=== PATIENT | male | born 1965 | race Caucasian/White ===

== ENCOUNTER 2024-01-27 13:34 | Emergency (ER) | payer MEDICAID, SELFPAY ==
[2024-01-27 13:49] VITALS: BP 154/90; PULSE 97; RESP 17; TEMP 36.5; O2SAT 99; BMI 24.6
--- NOTE | 2024-01-27 14:00 | XR_ITS ---
Examination: PA lateral chest 2 views TECHNIQUE: Upright PA lateral chest 2 views Exam date and time: January 27, 2024 at 1435 hours INDICATIONS: Intermittent chest pain one month FINDINGS: Normal heart size. Lungs are clear. Osseous structures are intact IMPRESSION: No active disease
--- NOTE | 2024-01-27 14:00 | XR_ITS ---
Examination: CT abdomen and pelvis without contrast. Coronal 3-D reconstructions. Sagittal 2-D reconstructions. Date and time of exam:January 27, 2024 1419 hours INDICATIONS: Generalized abdominal pain and constipation today, history kidney stones COMPARISON: May 25, 2022 CTDI: vol (mGy): 5.68 DLP: (mGycm): 301 Technique: Axial images of the abdomen have been obtained, 3 mm slice thickness Intravenous contrast material has not been administered. Low dose protocols were performed. One or more of the following dose reduction techniques were used; automated exposure control, adjustment of the mA and/or KV according to patient size, use of iterative reconstruction technique. Findings: No focal liver or splenic lesions No gallstones No pancreatic or adrenal mass 1 mm 3 mm 2 mm right renal calculi, no hydronephrosis or ureteral calculi Normal appendix No bowel obstruction No prostatomegaly No bladder mass or bladder calculi Mild to moderate diffuse lumbar disc narrowing IMPRESSION: Nonobstructing right renal calculi Normal appendix No bowel obstruction or diverticulitis
--- NOTE | 2024-01-27 14:00 | EKG_ITS ---
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
--- NOTE | 2024-01-27 14:01 | XR_ITS ---
Examination: CT brain head without contrast. 2-D sagittal coronal reconstructions Date and time of exam:January 27, 2024 1419 hours INDICATIONS: Generalized head pain today CTDI: vol (mGy):53.5 DLP: (mGycm):1058 Technique: Multiple CT axial sections of the brain have been obtained, 5 mm slice thickness. Contrast has not been administered. 2-D sagittal, coronal reconstructions have been obtained Low dose protocols were performed. One or more of the following dose reduction techniques were used; automated exposure control, adjustment of the mA and/or KV according to patient size, use of iterative reconstruction technique. Findings: No significant ventricular enlargement. Intra-axial or extra-axial hemorrhage density is not seen. No mass effect or midline shift Basal cisterns are not remarkable. Fourth ventricle is midline. Cranial vault intact. Impression: Negative for acute hemorrhage, mass effect or midline shift Advise clinical correlation follow-up accordingly
--- NOTE | 2024-01-27 14:01 | PD.EDRME ---
Rapid Medical Screening Exam RME Arrival date/time: 01/27/24 13:34 59-year-old male presents emergency department with multiple complaints patient reports headache, dizziness, constipation, abdominal pain Chief Complaint: Dizziness Time Seen by Provider: 01/27/24 13:56 Vital signs: Vital Signs Temperature 97.7 F 01/27/24 13:49 Pulse Rate 97 01/27/24 13:49 Respiratory Rate 17 01/27/24 13:49 Blood Pressure 154/90 H 01/27/24 13:49 Pulse Oximetry (%) 99 01/27/24 13:49 Oxygen Delivery Method Room Air 01/27/24 13:49
[2024-01-27 15:05] LABS: Basophils # (Auto) 0.1 Thou/mm3 (0.0-0.2); Basophils % (Auto) 1 % (0-2.5); Eosinophils # (Auto) 0.2 Thou/mm3 (0.0-0.5); Eosinophils % (Auto) 3 % (0-10); Hematocrit 36.8 % (41.0-53.0); Immature Granulocytes % (Auto) 0 % (0-0); Immature Granulocytes Auto 0.02 Thou/mm3 (0.00-0.00); Lymphocytes # (Auto) 2.2 Thou/mm3 (1.0-4.8); Lymphocytes % (Auto) 25 % (10-50); Mean Corpuscular HGB Conc 35.3 g/dl (31.0-37.0); Mean Corpuscular Hemoglobin 31.8 pg (25.0-35.0); Mean Corpuscular Volume 90 fL (80-100); Monocytes # (Auto) 0.8 Thou/mm3 (0.0-0.8); Monocytes % (Auto) 9 % (0-12); Neutrophils # (Auto) 5.3 Thou/mm3 (1.8-7.7); Neutrophils % (Auto) 62 % (37-80); Nucleated Red Blood Cell % 0 /100 WBC (0); Platelet Count 280 Thou/mm3 (140-440); RDW Standard Deviation 43.4 fL (35.1-43.9); Red Blood Count 4.09 Miln/mm3 (4.50-5.90); White Blood Count 8.5 Thou/mm3 (3.8-10.6)
[2024-01-27 15:24] LABS: Partial Thromboplastin Time 28.1 Seconds (22.0-36.0); Prothrombin Time 10.7 Seconds (9.0-12.2)
[2024-01-27 15:28] LABS: B-Type Natriuretic Peptide 155 pg/mL (0-100)
[2024-01-27 15:30] LABS: Alanine Aminotransferase 21 U/L (10-49); Albumin, Serum 4.3 gm/dL (3.5-5.0); Albumin/Globulin Ratio 1.5 (1.2-2.2); Alkaline Phosphatase 107 U/L (46-116); Anion Gap 4 (7-16); Aspartate Amino Transferase 21 U/L (0-34); BUN/Creatinine Ratio 12 Ratio (12-20); Bilirubin,Total 0.4 mg/dL (0.3-1.2); Blood Urea Nitrogen 17 mg/dL (9-23); Calcium 9.6 mg/dL (8.3-10.6); Calcium (Corrected) 9.6 mg/dL (8.5-10.1); Carbon Dioxide 27.5 mMol/L (20.0-31.0); Chloride 106 mMol/L (98-107); Creatinine (Component) 1.4 mg/dL (0.6-1.3); Estimated Creatinine Clearance 55.6 mL/min (>60); Globulin 2.9 gm/dL (2.3-3.5); Glucose 89 mg/dL (74-106); Lipase 29 U/L (12-53); Osmolality,Calculated 274 (275-295); Potassium 4.7 mMol/L (3.4-5.1); Sodium 137 mMol/L (136-145); Total Protein 7.2 gm/dL (5.7-8.2); Troponin I < 0.020 ng/mL (0.0-0.045); eGFR 58 See Note
[2024-01-27 15:49] LABS: Collection Type, Urine Clean Catch; Squamous Epithelial Cell,Urine 0 /hpf (0-5)
[2024-01-27 16:15] LABS: Amphetamine/Methamp Scrn,U Positive (Negative); Barbiturate Screen,Urine Negative (Negative); Benzodiazepines Screen,Urine Negative (Negative); Benzoylecgonine Screen, Ur Negative (Negative); Bilirubin,Urine Negative (Negative); Blood,Urine Negative (Negative); Clarity,Urine Clear (Clear/Hazy); Color,Urine Lt-Yellow (Lt Yel-Yel); Fentanyl Screen,Urine Negative (Negative); Glucose, Urine Negative (Negative); Ketones,Urine Negative (Negative); Leukocyte Esterase,Urine Negative (Negative); Nitrite,Urine Negative (Negative); Opiate Screen,Urine Negative (Negative); PH,Urine 6.5 (5.0-7.0); Protein,Urine Trace (Neg - Trace); RBC,Urine 2 /hpf (0-3); Specific Gravity,Urine 1.018 (1.001-1.035); THC Screen,Urine Positive (Negative); Urobilinogen,Urine Negative mg/dL (0.0-1.0); WBC,Urine 2 /hpf (0-5)
[2024-01-27 16:18] LABS: Sperm,Urine Present
[2024-01-27 17:07] VITALS: BP 143/90; PULSE 92; RESP 18; TEMP 36.7; O2SAT 99
--- NOTE | 2024-01-27 18:46 | PD.EDDIZZY ---
ED Dizzyness RME/HPI General Chief Complaint: Dizziness Stated Complaint: DIZZY, EARS RINGING, NEAR SYNCOPE Time Seen by Provider: 01/27/24 13:56 Source: patient Arrival date/time: 01/27/24 13:34 59-year-old male with past medical history of methamphetamine abuse presents emergency department complaining of headache, dizziness, constipation, and diffuse abdominal pain that is been ongoing for several weeks. Patient denies any fever, chills, nausea vomiting, chest pain, shortness of breath, or any other associated symptom. Mode of arrival: ambulatory Limitations: no limitations RME / HPI RME / HPI Narrative: 01/27/24 13:34 59-year-old male presents emergency department with multiple complaints patient reports headache, dizziness, constipation, abdominal pain Related Data Previous Rx's ?Medication ?Instructions ?Recorded hydrocodone 5 mg-acetaminophen 325 1 tab PO BID PRN pain #10 tabs 07/07/23 mg tablet meloxicam 7.5 mg tablet 7.5 mg PO QDAY #10 tabs 08/26/23 ondansetron 4 mg disintegrating 4 mg PO Q8H #10 tabs 08/26/23 tablet meclizine 50 mg tablet 50 mg PO BID PRN dizziness #30 tabs 01/08/24 peg 3350-electrolytes 236 240 ml PO Q10M #4,000 mL 01/08/24 gram-22.74 gram-6.74 gram-5.86 gram solution (GaviLyte-G) docusate sodium 100 mg capsule 100 mg PO BID 3 days #6 caps 01/27/24 polyethylene glycol 3350 17 4 g PO QDAY 3 days #12 grams 01/27/24 gram/dose oral powder (Miralax) Allergies Allergy/AdvReac Type Severity Reaction Status Date / Time No Known Allergies Allergy Verified 01/27/24 13:36 Review of Systems Review of Systems Systems Reviewed: All systems reviewed, normal except as documented Constitutional Constitutional: Reports system reviewed and no additional complaints, except as documented, Denies body ache(s), Denies chills, Denies fever(s) and Reports headache(s) Eyes Eyes: Reports system reviewed and no additional complaints, except as documented and Denies change in vision ENT Ears, Nose, Mouth, and Throat: Reports system reviewed and no additional complaints, except as documented, Denies disequilibrium, Denies dizziness, Reports headache(s), Denies sore throat and Reports vertigo Cardiovascular Cardiovascular: Reports system reviewed and no additional complaints, except as documented, Denies chest pain and Denies dyspnea Respiratory Respiratory: Reports system reviewed and no additional complaints, except as documented, Denies chest congestion, Denies cough and Denies dyspnea Gastrointestinal Gastrointestinal: Reports system reviewed and no additional complaints, except as documented, Reports abdominal pain, Reports constipation, Denies nausea and Denies vomiting Musculoskeletal Musculoskeletal: Reports system reviewed and no additional complaints, except as documented, Denies abnormal gait and Denies arthralgias Integumentary/Breasts Skin/Breast: Reports system reviewed and no additional complaints, except as documented, Denies erythema, Denies rash and Denies wounds Neurologic Neurologic: Reports system reviewed and no additional complaints, except as documented, Denies abnormal gait, Denies disequilibrium, Denies dizziness, Reports headache(s) and Reports vertigo Past Medical History Past Medical History NEUROLOGIC: Positive Migraine CARDIAC: Negative Cardiac Disorders or Congestive Heart Failure RESPIRATORY: Negative Chronic Obstructive Pulmonary Disease (COPD) GENITOURINARY: Negative Renal Disease ENDOCRINE: Negative Diabetes Mellitus Type 1 or Diabetes Mellitus Type 2 Social History SMOKING STATUS: Light (< 1 pack/day) SECOND HAND EXPOSURE: No ED Exam General Limitations: Present no limitations General appearance: Present alert and in no apparent distress Head Head exam: Present atraumatic Eye Eye exam: Present normal appearance, PERRL and EOMI ENT ENT exam: Present normal exam, normal oropharynx and mucous membranes moist Neck Neck exam: Present normal inspection, full ROM and trachea midline Chest Chest inspection: Present normal inspection and symmetric chest wall rise Respiratory Respiratory exam: Present normal lung sounds bilaterally Cardiovascular Cardiovascular exam: Present regular rate, normal rhythm and normal heart sounds Abdominal Exam Abdominal exam: Present soft and normal bowel sounds Extremities Exam Extremities exam: Present normal inspection and full ROM Back Exam Back exam: Present normal inspection and full ROM Neurological Exam Neurological exam: Present alert, oriented X3 and CN II-XII intact Psychiatric Psychiatric exam: Present normal affect and normal mood Skin Skin exam: Present warm, dry, intact and normal color Course Quality Measures none Orders Category Date Time Status EKG (ED ONLY) *Do not use* NOW Care 01/27/24 14:[address] abdomen pelvis wo con Stat Exams 01/27/24 14:[address] head/brain wo con Stat Exams 01/27/24 14:01 Completed EKG (ED Only) Stat Exams 01/27/24 14:00 Draft XR chest 2V Stat Exams 01/27/24 14:00 Completed B-Type Natriuretic Peptide Stat Lab 01/27/24 14:55 Completed CBC Stat Lab 01/27/24 14:55 Completed Comprehensive Metabolic Panel Stat Lab 01/27/24 14:55 Completed Drug Screen,Urine Stat Lab 01/27/24 15:40 Completed Lipase Stat Lab 01/27/24 14:55 Completed Magnesium Stat Lab 01/27/24 14:55 Completed Partial Thromboplastin Time Stat Lab 01/27/24 14:55 Completed Prothrombin Time with INR Stat Lab 01/27/24 14:55 Completed Troponin I Stat Lab 01/27/24 14:55 Completed Urinalysis Stat Lab 01/27/24 15:40 Completed Vital Signs Vital signs: Vital Signs Temperature 97.7 F 01/27/24 13:49 Pulse Rate 97 01/27/24 13:49 Respiratory Rate 17 01/27/24 13:49 Blood Pressure 154/90 H 01/27/24 13:49 Pulse Oximetry (%) 99 01/27/24 13:49 Oxygen Delivery Method Room Air 01/27/24 13:49 99% room air within normal limits Procedures -ED EKG Interpretation #1: Date of EK01/27/24 Time of EK:10 Rate: 89 Interpretation: Interpreted by me EKG Impression: Normal sinus rhythm, No acute ST-T changes, No ectopy and No ischemic changes Dizziness MDM Narrative MDM Narrative:: 59-year-old male with past medical history of methamphetamine abuse presents emergency department complaining of headache, dizziness, constipation, and diffuse abdominal pain that is been ongoing for several weeks. Patient denies any fever, chills, nausea vomiting, chest pain, shortness of breath, or any other associated symptom. Patient appears nontoxic and hemodynamically stable. CBC was unremarkable for any leukocytosis. CMP was unremarkable other than mildly elevated creatinine but better than previous labs. BNP was slightly elevated but patient has no adventitious lung sounds on auscultation speaking in full sentences and chest x-ray was negative for any acute process with no lower extremity edema. Toxicology was positive for methamphetamines. EKG was normal sinus rhythm with troponin within normal limits. CT of head and CT of abdomen pelvis was unremarkable. Patient's abdomen is soft and nontender. Patient does complain of constipation with last bowel movement being over 3 days ago. Patient discharged home on bowel regimen instructed to follow-up with primary care provider and return to the emergency department for any worsening symptoms or as needed. Patient data External records reviewed:: [facility] previous records Clinical information provided by:: patient Social determinants that could affect healthcare access:: substance use Patient has the following chronic illnesses:: See chart How is presenting disease/condition affected by chronic disease/condition?: exacerbated by Evaluation data The following diagnostics were reviewed and interpreted by me:: lab results, radiology exam(s) and EKG tracing(s) Lab and/or radiology exams considered but not ordered:: Ordered Interpretation Summary: Interpreted by me Medications / Prescriptions Medications or Prescriptions considered but not ordered:: N/A Medication administrations:: N/A Consultations Consultation(s) initiated? (list below): No Diagnosis Dizziness Differential Diagnosis: orthostatic hypotension, transient cerebral ischemia and other (CHF, ) Most likely diagnosis given after review of the tests above:: Methamphetamine use Constipation Admission Indicated Admission indicated?: not indicated Admission Request Was there a request for admission?: No Disposition Plan Disposition Plan: Discharge Discharge Attestation Discharge Attestation: The patient and all family members were given an opportunity to ask questions and understood the discharge instructions. Discharge instructions specifically effects, indications for sooner follow up or return to the emergency department, and the expected course of current diagnosis. Patient condition: Stable Discharge Plan Plan Patient Disposition: HOME (Self Care) Disposition Comment: Stable Prescriptions/Referrals Prescriptions/Med Rec: New docusate sodium 100 mg capsule 100 mg PO BID 3 Days Qty: 6 0RF polyethylene glycol 3350 [Miralax] 17 gram/dose powder 4 g PO QDAY 3 Days Qty: 12 0RF No Action peg 3350-electrolytes [GaviLyte-G] 236-22.74-6.74 -5.86 gram recon soln 240 ml PO Q10M Qty: 4000 0RF Rx Instructions: until fecal effluent is clear meclizine 50 mg tablet 50 mg PO BID PRN (Reason: dizziness) Qty: 30 0RF hydrocodone-acetaminophen 5-325 mg tablet 1 tab PO BID MDD 10 PRN (Reason: pain) Qty: 10 0RF ondansetron 4 mg tablet,disintegrating 4 mg PO Q8H Qty: 10 0RF meloxicam 7.5 mg tablet 7.5 mg PO QDAY Qty: 10 0RF Referrals: Sid [facility] [address] [employer] [employer] [Primary Care Provider] - In 1 week Problem List Clinical Impression: Constipation, Methamphetamine use Patient/Caregiver Discharge Instructions Discharge Activity: activity as tolerated Education Materials: Treating Constipation, Eating a High-Fiber Diet, Addiction: Getting Help, Addiction: Your Treatment Options, ED Drug Abuse Additional Instructions: Take medication as prescribed. Please stop using methamphetamines. Resources packet provided. Follow-up with primary care provider in 24 to 48 hours. Return to emergency department for any worsening symptoms or as needed. Print Language: Yi Stand Alone Forms: Josie Award Info., Patient Portal Info Letter Attestation MD Attestation The patient was seen by the midlevel practitioner. I, the co-signing physician, was present during the entire ER visit. While I did not physically examine the patient, I was available for consultation as needed.
== END 2024-01-27 18:57 | disposition home or self-care (01) ==
PROVIDERS: Nurse Practitioner Primary Care; Emergency Provider Emergency Medicine; PCP Nurse Practitioner Family
DX: K59.00 Constipation, unspecified (principal); F15.10 Other stimulant abuse, uncomplicated; R51.9 Headache, unspecified; R07.9 Chest pain, unspecified; R94.31 Abnormal electrocardiogram [ECG] [EKG]
CPT/HCPCS: 36415; 70450; 71046; 74176; 80053; 80307; 81001; 83690; 83735; 83880; 84484; 85025; 85610; 85730; 93005; 99284

== ENCOUNTER → 2024-02-06 | Outpatient (BNVA) | payer MEDICAID, SELFPAY | END | disposition home or self-care (01) | PROVIDERS: PCP Nurse Practitioner Family; Referring Provider Nurse Practitioner Family; Visit Provider Nurse Practitioner Family | DX: R53.83 Other fatigue (principal); F17.200 Nicotine dependence, unspecified, uncomplicated; M25.59 Pain in other specified joint; Z87.01 Personal history of pneumonia (recurrent) | CPT/HCPCS: 99215 ==

== ENCOUNTER → 2024-02-20 | Outpatient (BNVA) | payer MEDICAID, SELFPAY | END | disposition home or self-care (01) | PROVIDERS: PCP Nurse Practitioner Primary Care; Referring Provider Nurse Practitioner Primary Care; Visit Provider Nurse Practitioner Primary Care | DX: R91.1 Solitary pulmonary nodule (principal); F17.200 Nicotine dependence, unspecified, uncomplicated; I51.7 Cardiomegaly; F15.10 Other stimulant abuse, uncomplicated; Z13.220 Encounter for screening for lipoid disorders; Z13.1 Encounter for screening for diabetes mellitus; Z13.89 Encounter for screening for other disorder; Z87.01 Personal history of pneumonia (recurrent) | CPT/HCPCS: 85018; 93005; 99214 ==

== ENCOUNTER → 2024-02-26 | Outpatient (CLI) | payer MEDICAID, SELFPAY ==
--- NOTE | 2024-02-26 13:51 | XR_ITS ---
Examination: PA lateral chest 2 views TECHNIQUE: Upright PA lateral chest 2 views Exam date and time: 2023 1402 hours Comparison January 27, 2024 INDICATIONS: Shortness of breath beginning 2 months ago. FINDINGS: Normal heart size Moderate hyperexpansion No pneumonia or pulmonary edema The osseous structures are intact IMPRESSION: COPD with moderate hyperexpansion
== END | disposition home or self-care (01) ==
PROVIDERS: PCP Nurse Practitioner Family; Referring Provider Nurse Practitioner Family; Visit Provider Nurse Practitioner Family
DX: J44.9 Chronic obstructive pulmonary disease, unspecified (principal)
CPT/HCPCS: 71046

== ENCOUNTER → 2024-02-27 | Outpatient (BNVA) | payer MEDICAID, SELFPAY | END | disposition home or self-care (01) | PROVIDERS: PCP Nurse Practitioner Primary Care; Referring Provider Nurse Practitioner Primary Care; Visit Provider Nurse Practitioner Primary Care | DX: J44.9 Chronic obstructive pulmonary disease, unspecified (principal); Z71.2 Person consulting for explanation of examination or test findings; Z00.01 Encounter for general adult medical examination with abnormal findings; R73.03 Prediabetes; B17.10 Acute hepatitis C without hepatic coma; F17.200 Nicotine dependence, unspecified, uncomplicated | CPT/HCPCS: 93005; 99215 ==

== ENCOUNTER → 2024-03-03 | Outpatient (BNVA) | payer MEDICAID, SELFPAY | END | disposition home or self-care (01) | PROVIDERS: PCP Nurse Practitioner Primary Care; Referring Provider Nurse Practitioner Primary Care; Visit Provider Nurse Practitioner Primary Care | DX: B17.10 Acute hepatitis C without hepatic coma (principal) | CPT/HCPCS: 99213 ==

== ENCOUNTER 2024-06-14 01:34 | Emergency (ER) | payer MEDICAID, SELFPAY ==
[2024-06-14] VITALS (9 sets, daily range): BP systolic 130–154; BP diastolic 89–104; PULSE 88–106; RESP 16–22; TEMP 36.4–36.8; O2SAT 96–100; BMI 55.3
--- NOTE | 2024-06-14 01:44 | EKG_ITS ---
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
--- NOTE | 2024-06-14 01:54 | XR_ITS ---
Examination: PA lateral chest 2 views TECHNIQUE: Upright PA lateral chest 2 views Exam date and time: June 14, 2024 0227 hours INDICATIONS: Shortness of breath today FINDINGS: Normal heart size Moderate hyperexpansion No pneumonia or pulmonary edema IMPRESSION: Moderate hyperexpansion No pneumonia or pulmonary edema
--- NOTE | 2024-06-14 01:55 | PD.EDRME ---
Rapid Medical Screening Exam RME Arrival date/time: 06/14/24 01:34 59 year old male present to ED for c/o of shortness of breath, hx of copd I have greeted and performed a focused initial assessment of this patient. A comprehensive ED assessment and evaluation of the patient, analysis of all test results, and completion of the medical decision making process will be conducted by additional ED providers. Chief Complaint: Shortness of Breath/Dyspnea Vital signs: Vital Signs Temperature 97.5 F 06/14/24 01:53 Pulse Rate 106 H 06/14/24 01:53 Respiratory Rate 19 06/14/24 01:53 Blood Pressure 130/89 H 06/14/24 01:53 Pulse Oximetry (%) 97 06/14/24 01:53 Oxygen Delivery Method Room Air 06/14/24 01:53
[2024-06-14] MEDS: ALBUTEROL/IPRATROPIUM (Duoneb) RT SOL 3 ML NEBU INH ×3 (02:05→08:24)
[2024-06-14 02:20] LABS: Basophils # (Auto) 0.1 Thou/mm3 (0.0-0.2); Basophils % (Auto) 1 % (0-2.5); Eosinophils # (Auto) 0.2 Thou/mm3 (0.0-0.5); Eosinophils % (Auto) 3 % (0-10); Hematocrit 40.6 % (41.0-53.0); Hemoglobin 14.1 g/dL (13.5-16.0); Immature Granulocytes % (Auto) 0 % (0-0); Immature Granulocytes Auto 0.01 Thou/mm3 (0.00-0.00); Lymphocytes % (Auto) 35 % (10-50); Mean Corpuscular HGB Conc 34.7 g/dl (31.0-37.0); Mean Corpuscular Hemoglobin 32.6 pg (25.0-35.0); Mean Corpuscular Volume 94 fL (80-100); Monocytes # (Auto) 0.9 Thou/mm3 (0.0-0.8); Monocytes % (Auto) 10 % (0-12); Neutrophils # (Auto) 4.3 Thou/mm3 (1.8-7.7); Neutrophils % (Auto) 51 % (37-80); Nucleated Red Blood Cell % 0 /100 WBC (0); Platelet Count 191 Thou/mm3 (140-440); RDW Standard Deviation 47.7 fL (35.1-43.9); Red Blood Count 4.32 Miln/mm3 (4.50-5.90); White Blood Count 8.6 Thou/mm3 (3.8-10.6)
[2024-06-14] MEDS: predniSONE 20 MG TABLET 60 MG PO (02:22)
[2024-06-14 02:40] LABS: B-Type Natriuretic Peptide 364 pg/mL (0-100)
[2024-06-14 02:51] LABS: Alanine Aminotransferase 27 U/L (10-49); Albumin/Globulin Ratio 1.4 (1.2-2.2); Alkaline Phosphatase 93 U/L (46-116); Anion Gap 7 (7-16); Aspartate Amino Transferase 29 U/L (0-34); BUN/Creatinine Ratio 16 Ratio (12-20); Bilirubin,Total 0.5 mg/dL (0.3-1.2); Blood Urea Nitrogen 26 mg/dL (9-23); Calcium 9.2 mg/dL (8.3-10.6); Calcium (Corrected) 9.2 mg/dL (8.5-10.1); Carbon Dioxide 23.7 mMol/L (20.0-31.0); Chloride 110 mMol/L (98-107); Creatinine (Component) 1.6 mg/dL (0.6-1.3); Estimated Creatinine Clearance 83.4 mL/min (>60); Globulin 2.9 gm/dL (2.3-3.5); Lipase 37 U/L (12-53); Osmolality,Calculated 282 (275-295); Potassium 4.1 mMol/L (3.4-5.1); Sodium 141 mMol/L (136-145); Total Protein 6.9 gm/dL (5.7-8.2); Troponin I < 0.020 ng/mL (0.0-0.045); eGFR 50 See Note
[2024-06-14 02:52] LABS: Glucose 49 mg/dL (74-106)
--- NOTE | 2024-06-14 02:54 | PC.NURSE ---
RECEIVED CALL FROM LAB THAT PATIENTS BLOOD SUGAR WAS 49, PT ALERT AND ORIENTED GIVEN JUICE AND FOOD
--- NOTE | 2024-06-14 07:04 | PC.NURSE ---
Report received from Torey DENT, patient lying in [place] quietly, no distress noted at this time, resp. even and non labored, patient received neb, tx with improvement of his sypmtoms, patient states he has been sob for past few months with a non productive cough, skin is warm dry and pink, 02 sats 97% on RA. Patient denies pain, call light within reach, patient has no other needs at this time.
--- NOTE | 2024-06-14 08:14 | EDNOTE_ITS ---
ED SOB =RME/HPI General Chief Complaint: Shortness of Breath/Dyspnea Stated Complaint: S0B Arrival date/time: 06/14/24 01:34 RME / HPI RME / HPI Narrative: 06/14/24 01:34 59 year old male present to ED for c/o of shortness of breath, hx of copd I have greeted and performed a focused initial assessment of this patient. A comprehensive ED assessment and evaluation of the patient, analysis of all test results, and completion of the medical decision making process will be conducted by additional ED providers. DR. BREEN MAIN ED EVALUATION: 59 year old male with past medical history significant for COPD, cigarette smoker, presents to the Emergency Department with complaint of shortness of breath for a couple of months but worse this morning. Related Data Previous Rx's ?Medication ?Instructions ?Recorded albuterol sulfate 90 mcg/actuation 2 inh inhalation Q6 H PRN shortness 02/27/24 aerosol inhaler of breath or wheezing #8.5 g deejay fluticasone propionate 250 1 inh inhalation BID #60 ea 02/27/24 mcg/actuation blister powder for inhalation tiotropium bromide 2.5 2 puff inhalation QDAY #4 gr ams 02/27/24 mcg/actuation mist for inhalation (Spiriva Respimat) Allergies Allergy/AdvReac Type Severity Reaction Status Date / Time No Known Allergies Allergy Verified 06/14/24 01:40 Review of Systems Review of Systems Systems Reviewed: All systems reviewed, normal except as documented Narrative Review of Systems: GEN: No fever, no chills, no weight loss EYES: No discharge, no visual changes, no pain HEENT: No ear pain, no congestion, no sore throat PULM: + shortness of breath, no cough, no congestion CV: No chest pain, no dyspnea on exertion, no palpitations GI: No nausea, no vomiting, no diarrhea, no pain, no constipation : No frequency, no urgency and no dysuria MUSC/SKEL: No joint pain, no back pain SKIN: No rash PSYCH: No hallucinations, no depression HEME/LYMPH: No easy bleeding or bruising tendencies NEURO: No weakness, no headache Past Medical History Past Medical History NEUROLOGIC: Positive Migraine RESPIRATORY: Positive Chronic Obstructive Pulmonary Disease (COPD) Social History SMOKING STATUS: Current every day smoker SECOND HAND EXPOSURE: No SUBSTANCE USE: does not use ALCOHOL: Never ED Exam Narrative Physical exam: GENERAL APPEARANCE: alert and oriented x 4, well-developed, well-nourished, no acute distress VITALS: All vitals were reviewed and the pulse ox is 96% on room air, which is normal according to my interpretation. HEENT: Normocephalic, atraumatic; pupils equal, round, reactive to light; EOMI; mucous membranes pink, moist; oropharynx clear NECK: Supple LUNGS: CTABL; no wheezes, no rales, no rhonchi HEART: Regular rate, regular rhythm; normal S1, S2; no murmurs ABDOMEN: non distended; normal BS; soft, no tenderness, no guarding, no rebound; no masses, no organomegaly, no hernia BACK: no CVA tenderness EXTREMITIES: atraumatic; no edema NEUROLOGIC: awake; alert and oriented x4; cranial nerves II-XII grossly intact; no focal sensory or motor deficits PSYCHIATRIC: appropriate mood and affect SKIN: warm, dry, normal color; no rashes Course Quality Measures none Orders Category Date Time Status EKG (ED ONLY) *Do not use* NOW Care 06/14/24 01:44 Completed Fingerstick [Bedside Blood Glucose] NOW Care 06/14/24 03:45 Completed EKG (ED Only) Stat Exams 06/14/24 01:44 Ordered XR chest 2V Stat Exams 06/14/24 01:54 Completed BNP [B-Type Natriuretic Peptide] Stat Lab 06/14/24 02:06 Completed CBC Stat Lab 06/14/24 02:06 Completed CMP [Comprehensive Metabolic Panel] Stat Lab 06/14/24 02:06 Completed Lipase Stat Lab 06/14/24 02:06 Completed Troponin I Stat Lab 06/14/24 02:06 Completed Albuterol/Ipratr Rt Katarina [Duoneb Rt Katarina] Med 06/14/24 01:54 Discontinued 3 ml INH X1 ONE Albuterol/Ipratr Rt Katarina [Duoneb Rt Katarina] Med 06/14/24 05:50 Discontinued 3 ml INH X1 ONE Albuterol/Ipratr Rt Katarina [Duoneb Rt Katarina] Med 06/14/24 08:15 Discontinued 3 ml INH X1 ONE predniSONE Med 06/14/24 01:54 Discontinued 60 mg PO X1 ONE Vital Signs Vital signs: Vital Signs Temperature 97.5 F 06/14/24 01:53 Pulse Rate 106 H 06/14/24 01:53 Respiratory Rate 19 06/14/24 01:53 Blood Pressure 130/89 H 06/14/24 01:53 Pulse Oximetry (%) 97 06/14/24 01:53 Oxygen Delivery Method Room Air 06/14/24 01:53 Shortness of Breath / Dyspnea MDM Narrative MDM Narrative:: I, Chanelle Portillo, am scribing for and in the presence of Dr. Breen. Patient data External records reviewed:: [facility] previous records (Reviewed last ED visit dated 01/08/24, discharged with the following: Constipation) Clinical information provided by:: patient Social determinants that could affect healthcare access:: other (specify) (smoking) Patient has the following chronic illnesses:: COPD, cigarette smoker How is presenting disease/condition affected by chronic disease/condition?: ca used by Evaluation data The following diagnostics were reviewed and interpreted by me:: lab results and radiology exam(s) Lab and/or radiology exams considered but not ordered:: none Interpretation Summary: Procedure(s): XR chest 2V Accession Number(s): [id number] cc: Stevie Jean Baptiste MD; William Rogers PA-C; Pancho Parr PA-C~ Examination: PA lateral chest 2 views TECHNIQUE: Upright PA lateral chest 2 views Exam date and time: June 14, 2024 0227 hours INDICATIONS: Shortness of breath today FINDINGS: Normal heart size Moderate hyperexpansion No pneumonia or pulmonary edema IMPRESSION: Moderate hyperexpansion No pneumonia or pulmonary edema Dictated By: Stevie Jean Baptiste MD Medications / Prescriptions Medications or Prescriptions considered but not ordered:: none Medication administrations:: Medication Administration History Discontinued Medications Albuterol/Ipratropium (Albuterol/Ipratropium (Duoneb) Rt Katarina 3 Ml Nebu) 3 ml INH X1 ONE Stop: 06/14/24 01:55 Last Admin: 06/14/24 02:05 Dose: 3 ml Documented By: SESAR Comments: Scanner not working, verified with armband and PT /name Albuterol/Ipratropium (Albuterol/Ipratropium (Duoneb) Rt Katarina 3 Ml Nebu) 3 ml INH X1 ONE Stop: 06/14/24 05:51 Last Admin: 06/14/24 06:34 Dose: 3 ml Documented By: ANISHA Albuterol/Ipratropium (Albuterol/Ipratropium (Duoneb) Rt Katarina 3 Ml Nebu) 3 ml INH X1 ONE Stop: 06/14/24 08:16 Last Admin: 06/14/24 08:24 Dose: 3 ml Documented By: ANISHA Prednisone (Prednisone 20 Mg Tablet) 60 mg PO X1 ONE Stop: 06/14/24 01:55 Last Admin: 06/14/24 02:22 Dose: 60 mg Documented By: BALBIR see above Consultations Consultation(s) initiated? (list below): No Diagnosis Shortness of Breath Differential Diagnosis: acute exacerbation of chronic obstructive airways disease, community acquired pneumonia and asthma with exacerbation Most likely diagnosis given after review of the tests above:: COPD Cigarette smoker Dyspnea Admission Indicated Admission indicated?: not indicated Admission Request Was there a request for admission?: No Disposition Plan Disposition Plan: Discharge Discharge Attestation Discharge Attestation: The patient and all family members were given an opportunity to ask questions and understood the discharge instructions. Discharge instructions specifically effects, indications for sooner follow up or return to the emergency department, and the expected course of current diagnosis. Patient condition: Stable Discharge Plan Plan Patient Disposition: HOME (Self Care) Prescriptions/Referrals Prescriptions/Med Rec: No Action Spiriva Respimat 2.5 mcg/actuation mist 2 puff inhalation QDAY Qty: 4 1RF albuterol sulfate 90 mcg/actuation HFA aerosol inhaler 2 inh inhalation Q6H PRN (Reason: shortness of breath or wheezing) Qty: 8.5 0RF fluticasone propionate 250 mcg/actuation blister with device 1 inh inhalation BID Qty: 60 0RF Referrals: Pancho Parr PA-C [Primary Care Provider] - In 1 week Problem List Clinical Impression: COPD (chronic obstructive pulmonary disease), Cigarette smoker, Dyspnea Patient/Caregiver Discharge Instructions Education Materials: Chronic Lung Disease Quit Smoking, ED Shortness of Breath (Dyspnea) Print Language: Slovak Stand Alone Forms: Josie Award Info., Patient Portal Info Letter
== END 2024-06-14 09:14 | disposition home or self-care (01) ==
PROVIDERS: Physician Assistant; Emergency Provider Emergency Medicine; PCP Physician Assistant Medical
DX: J44.9 Chronic obstructive pulmonary disease, unspecified (principal); F17.210 Nicotine dependence, cigarettes, uncomplicated; R94.31 Abnormal electrocardiogram [ECG] [EKG]
CPT/HCPCS: 36415; 71046; 80053; 83690; 83880; 84484; 85025; 93005; 94640; 99284; A9270; J7512

== ENCOUNTER 2024-07-30 03:03 | Inpatient (IN) | payer MEDICAID, SELFPAY ==
[2024-07-30] VITALS (141 sets, daily range): BP systolic 64–163; BP diastolic 46–111; PULSE 56–131; RESP 0–88; TEMP 34.5–36.9; O2SAT 48–100; BMI 24.4
--- NOTE | 2024-07-30 03:57 | EKG_ITS ---
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: : 1965 Requested By: Julio Kelsey Order Number: [id number] Reading MD: Julio Kelsey Measurements Intervals Howard Rate: 65 P: 75 MN: 166 QRS: 93 QRSD: 98 T: 5 QT: 470 QTc: 490 Interpretive Statements SINUS RHYTHM BORDERLINE RIGHT AXIS DEVIATION [QRS AXIS > 90] INCOMPLETE RIGHT BUNDLE BRANCH BLOCK [90+ ms QRS DURATION, TERMINAL R IN V1/V2, 40+ ms S IN I/aVL/V4/V5/V6] ST DEVIATION AND MODERATE T-WAVE ABNORMALITY, CONSIDER ANTEROLATERAL ISCHEMIA [-0.1+ mV T-WAVE IN V3-V6] Compared to ECG 06/14/2024 01:49:26 Incomplete right bundle-branch block now present T-wave abnormality still present Possible ischemia still present /store/S0/[id number]/ecg/[id number].pdf
--- NOTE | 2024-07-30 03:57 | XR_ITS ---
Examination: PA chest single view TECHNIQUE: Upright PA chest single view Date and time: July 30, 2024 at 0405 hours INDICATION: Chest pain and shortness of breath today. FINDINGS: Mild prominence left ventricle No pneumonia or pulmonary edema. Osseous structures are intact. IMPRESSION: No active disease
--- NOTE | 2024-07-30 04:11 | PD.EDRME ---
Rapid Medical Screening Exam RME Arrival date/time: 07/30/24 03:03 59M with history of drug use and COPD presents to ED with SOB, bilateral leg pain/swelling, and dizziness. Chief Complaint: Dizziness Time Seen by Provider: 07/30/24 03:58 Vital signs: Vital Signs Temperature 98.5 F 07/30/24 03:12 Pulse Rate 87 07/30/24 03:12 Respiratory Rate 18 07/30/24 03:12 Blood Pressure 148/104 H 07/30/24 03:12 Pulse Oximetry (%) 100 07/30/24 03:12 Oxygen Delivery Method Room Air 07/30/24 03:12
[2024-07-30] MEDS: METOPROLOL TARTRATE 25 MG TABLET 50 MG PO ×2 (04:32→04:33)
[2024-07-30] MEDS: cloNIDine HCL 0.1 MG TABLET 0.2 MG PO (04:33)
[2024-07-30 05:33] LABS: Basophils % (Auto) 1 % (0-2.5); Eosinophils # (Auto) 0.2 Thou/mm3 (0.0-0.5); Eosinophils % (Auto) 2 % (0-10); Hemoglobin 13.9 g/dL (13.5-16.0); Immature Granulocytes % (Auto) 0 % (0-0); Immature Granulocytes Auto 0.02 Thou/mm3 (0.00-0.00); Lymphocytes # (Auto) 2.2 Thou/mm3 (1.0-4.8); Lymphocytes % (Auto) 27 % (10-50); Mean Corpuscular HGB Conc 35.6 g/dl (31.0-37.0); Mean Corpuscular Hemoglobin 32.9 pg (25.0-35.0); Mean Corpuscular Volume 92 fL (80-100); Monocytes # (Auto) 0.8 Thou/mm3 (0.0-0.8); Monocytes % (Auto) 9 % (0-12); Neutrophils % (Auto) 61 % (37-80); Nucleated Red Blood Cell % 0 /100 WBC (0); Platelet Count 189 Thou/mm3 (140-440); RDW Standard Deviation 47.6 fL (35.1-43.9); Red Blood Count 4.23 Miln/mm3 (4.50-5.90); White Blood Count 8.3 Thou/mm3 (3.8-10.6)
--- NOTE | 2024-07-30 05:41 | XR_ITS ---
Examination: CT brain head without contrast. 2-D sagittal coronal reconstructions Date and time of exam:July 30, 2024 1343 hours INDICATIONS: Headaches dizziness today CTDI: vol (mGy):50.7 DLP: (mGycm):1111 Technique: Multiple CT axial sections of the brain have been obtained, 5 mm slice thickness. Contrast has not been administered. 2-D sagittal, coronal reconstructions have been obtained Low dose protocols were performed. One or more of the following dose reduction techniques were used; automated exposure control, adjustment of the mA and/or KV according to patient size, use of iterative reconstruction technique. Findings: No significant ventricular enlargement. Intra-axial or extra-axial hemorrhage density is not seen. No mass effect or midline shift Basal cisterns are not remarkable. Fourth ventricle is midline. Cranial vault intact. Impression: Negative for acute hemorrhage, mass effect or midline shift Advise clinical correlation follow-up accordingly
--- NOTE | 2024-07-30 05:42 | XR_ITS ---
Examination: CTA chest with intravenous contrast 2-D reconstructions 3-D reconstructions, vascular Date and time of exam: July 30, 2024 1351 hours INDICATIONS: Shortness of breath chest pain today CTDI: vol (mGy) 17.4 DLP: (mGycm) 609 Technique: Multiple axial sections of the thorax have been obtained. 3 mm slice thickness, from below the hemidiaphragms to above the apices of the lungs. Mediastinal and lung density settings have been obtained. 2-D sagittal and coronal reconstructions. 3-D angiographic renderings, 3-D volume renderings, 3D post processing, vascular maximum intensity projections obtained. Contrast administered is 60 cc Isovue-300. Intravenous Low dose protocols were performed. One or more of the following dose reduction techniques were used; automated exposure control, adjustment of the mA and/or KV according to patient size, use of iterative reconstruction technique. Findings: No thoracic aortic aneurysmal dilatation No pulmonary artery filling defects No paratracheal tracheobronchial or bronchopulmonary adenopathy. 3 mm pulmonary nodule right upper lobe image 153 Minimal right pleural disease No pulmonary edema or pneumonia IMPRESSION:: Negative for pulmonary artery emboli 3 mm pulmonary nodule right upper lobe, with this study as baseline recommend 6 month follow-up CT chest without contrast No pneumonia or pulmonary edema Minimal right pleural disease
--- NOTE | 2024-07-30 05:42 | XR_ITS ---
Examination: CT abdomen with intravenous contrast CT pelvis with intravenous contrast 2-D coronal reconstructions 2-D sagittal reconstructions Date and time of exam:July 30, 2024 1351 hours Comparison January 27, 2024 INDICATIONS: Onset generalized abdominal pain today. CTDI: vol (mGy) 15.9 DLP: (mGycm) 931 Technique: Multiple axial sections of the abdomen and pelvis have been obtained. 64 slice high-resolution scanner used. 3 mm axial sections have been obtained, post intravenous injection 60 cc Isovue-300 2-D sagittal, coronal reconstructions obtained. Low dose protocols were performed. One or more of the following dose reduction techniques were used; automated exposure control, adjustment of the mA and/or KV according to patient size, use of iterative reconstruction technique. Findings: Minimal right pleural disease Minimal fluid subcapsular to the liver Liver is irregular in contour Mild ascites Contracted gallbladder Spleen is not enlarged No pancreatic or adrenal mass No hydronephrosis Aorta normal size No bowel obstruction Normal appendix No diverticulitis Urinary bladder intact with mild wall thickening Fluid containing inguinal hernias Moderate osteopenia IMPRESSION: Primary hepatocellular disease versus cirrhosis Mild ascites No gallstones noted Normal appendix No bowel obstruction
[2024-07-30 05:53] LABS: Alanine Aminotransferase 28 U/L (10-49); Albumin, Serum 4.1 gm/dL (3.5-5.0); Albumin/Globulin Ratio 1.4 (1.2-2.2); Alkaline Phosphatase 100 U/L (46-116); Anion Gap 8 (7-16); Aspartate Amino Transferase 30 U/L (0-34); BUN/Creatinine Ratio 15 Ratio (12-20); Bilirubin,Total 0.6 mg/dL (0.3-1.2); Blood Urea Nitrogen 23 mg/dL (9-23); Calcium 9.2 mg/dL (8.3-10.6); Calcium (Corrected) 9.2 mg/dL (8.5-10.1); Carbon Dioxide 25.1 mMol/L (20.0-31.0); Chloride 109 mMol/L (98-107); Creatinine (Component) 1.5 mg/dL (0.6-1.3); Estimated Creatinine Clearance 57.2 mL/min (>60); Globulin 2.9 gm/dL (2.3-3.5); Glucose 99 mg/dL (74-106); Osmolality,Calculated 286 (275-295); Potassium 5.1 mMol/L (3.4-5.1); Sodium 142 mMol/L (136-145); Troponin I < 0.020 ng/mL (0.0-0.045); eGFR 54 See Note
[2024-07-30 05:54] LABS: Collection Type, Urine Clean Catch; Squamous Epithelial Cell,Urine 0 /hpf (0-5)
[2024-07-30 05:56] LABS: Partial Thromboplastin Time 28.5 Seconds (22.0-36.0); Prothrombin Time 11.1 Seconds (9.0-12.2)
[2024-07-30 06:04] LABS: B-Type Natriuretic Peptide 658 pg/mL (0-100)
[2024-07-30] MEDS: KETOROLAC INJ 30 MG/ML VIAL IVP (06:11)
[2024-07-30] MEDS: ONDANSETRON INJ 2 MG/ML INJ 2 ML 4 MG IV ×3 (06:11→12:16)
[2024-07-30] MEDS: MORPHINE SULF INJ 10 MG/ML VIAL 4 MG IVP (06:12)
[2024-07-30] MEDS: SODIUM CHLORIDE 0.9% 1000 ML 1,000 ML 999 ML IV ×2 (06:13→06:57)
--- NOTE | 2024-07-30 06:32 | EDNOTE_ITS ---
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 repeated which was similar to previous EKG. Patient denied any chest pain. Current blood pressure is around 88/68. Blood sugar was 121. Blood alcohol came negative. ED physician ordered CTA angio, CT head, CT abdomen pelvis with contrast currently pending. Will follow-up with imaging results. 7:31 Patient was found hypotensive 77/64 MAP 55 and was running second bag of bolus of fluids. stat Trop I, Lactic acid and ABGs were ordered. 8:00 patient started becoming hypoxic around 60% on 15 L oxy mask and was placed on high flow nasal cannula. Stat ABGs revealed respiratory acidosis with pH 7.26, pCO2 36, pO2 171. Lactic acid came back 2.9. Repeat troponin I was negative less than 0.020. Blood sugars were 116. Blood pressure revealed blood pressure of 85/66. Patient started having widespread mottling around his thighs and knees. Patient was diaphoretic and was placed on Heavenly hugger due to hypothermia temperature of 94.1. Heart rate was 60 bpm. 8: 20 patient was awake and alert however patient's pulses became extremely weak and thready. Patient was given glucagon 1 mg IV x 1 diversified to be the ariana. Upon recycling of blood pressure, patient started improving in the vitals including blood pressure with MAP of 72. Limited bedside ultrasound was performed to see his cardiac functions which showed severe RV hypertrophy and IVC was dilated. New CBC, CMP were ordered. Currently continuing on high flow nasal cannula and Levophed was added but was held as blood pressure improved. 8: 55 currently waiting on the official echocardiogram. Per quality assurance qa lab technician, patient has severe pulmonary hypertension with preserved ejection fraction. Patient is not sustaining stable vitals as well as oxygen saturations dropped to 88% as patient removes his high flow nasal cannula because of smell from the plastic of the cannula. His blood pressure was 77/58, heart rate 60s, respiratory 33 and temperature 94.1. Patient was explained that he needs to keep his high flow nasal cannula for better oxygenation. Vitals were closely monitored. 9: 20 hospitalist team was contacted and they came to evaluate the patient downstairs. Examination was significant for abdominal distention with lower pelvic and right upper quadrant tenderness and they wanted to evaluate the patient with CT abdomen before the admit the patient. Additionally, patient was given dose of Narcan 0.22 IV x 1 with Zofran 4 mg to help with oxygen saturation. D-dimers were less than 250. Lopez catheter was inserted along with strict NAMAN's to monitor patient's urine output. 10:00 chemistry panel showed hyperkalemia potassium 5.8. Corrected calcium came 8.1. Magnesium 1.9. Patient was given breathing treatment, calcium gluconate and 1 g magnesium x 1. 13:00 patient's daughter came in the bedside and she was explained regarding patient's critical condition and admission to the ICU. Daughter stated the patient is full code and she would appreciate to be updated regarding patient's clinical status. Cardiology, Dr Valladares has been consulted for following the case. 13:41 CTA was negative for PE. 3 mm pulmonary nodule was seen on right upper lobe. No pneumonia or pulmonary edema. Minimal right pleural disease. CT abdomen pelvis showed mild ascites. Irregular liver in contour. Head CT showed no acute changes. ICU team came by and took over the patient for admission to ICU and was started on dobutamine drip due to cardiogenic shock related to severe pulmonary hypertension. Heparin drip was Dced as PE was not found. Discussed case with ICU team regarding admission. Discussed patient's ED course, exam findings, labs and radiology results. ICU team agreed to accept the patient for admission. EKG Interpretation EKG #1: EKG Interpretation: EKG showed sinus rhythm with QTc 490 incomplete RBBB and T wave inversions seen in lead V1, V2, V3, V4, V5. EKG #2: EKG Interpretation: EKG was repeated which was similar to previous EKG. Medication Administration(s) Medication Administration History Famotidine (Famotidine Inj 10 Mg/Ml Vial 2 Ml) 20 mg IVP BID [facility] Stop: 08/29/24 20:59 Furosemide (Furosemide Inj 10 Mg/Ml Vial 2 Ml) 20 mg IV TID [facility] Stop: 08/29/24 14:44 Heparin Sodium (Porcine) (Heparin Sod Inj 5000 Unit/Ml Vial) 5,000 unit SC TID [facility] Stop: 08/13/24 21:59 Dobutamine HCl/Dextrose (Dobutrex/D5w Ivpb) 500 mg in 250 mls @ 5.953 mls/hr IV .Q24H ONE; Protocol Stop: 07/31/24 14:31 Last Admin: 07/30/24 15:15 Dose: 2.5 mcg/kg/min, 5.953 mls/hr Documented By: GM Midazolam HCl (Versed Pf Inj In Ns Premix) 100 mg in 100 mls @ 1 mls/hr IV .Q24H PRN; Protocol PRN Reason: PER PROTOCOL Stop: 08/04/24 16:13 Phenylephrine HCl 40 mg/ (Sodium Chloride) 100 mls @ 1.191 mls/hr IV .Q24H PRN; Protocol PRN Reason: Per Cardiogenic Protocol Stop: 08/29/24 17:42 Norepinephrine/Dextrose (Levophed In D5w 8mg/250ml) 8 mg in 250 mls @ 7.442 mls/hr IV .Q24H PRN; Protocol PRN Reason: PER PROTOCOL Stop: 08/29/24 17:41 Epinephrine/Sodium Chloride (Adrenalin/Ns 4 Mg Ivpb) 4 mg in 250 mls @ 14.884 mls/hr IV .[id number] PRN; Protocol PRN Reason: per protocol Stop: 08/29/24 16:18 Epinephrine HCl 8 mg/ Sodium (Chloride) 500 mls @ 14.884 mls/hr IV .Q24H PRN; Protocol PRN Reason: per protocol Stop: 08/29/24 18:04 Ondansetron HCl (Ondansetron Inj 2 Mg/Ml Inj 2 Ml) 4 mg IV Q6H PRN; Protocol PRN Reason: vomiting Stop: 08/29/24 09:44 Last Admin: 07/30/24 12:16 Dose: 4 mg Documented By: CS Discontinued Medications Albuterol/Ipratropium (Albuterol/Ipratropium (Duoneb) Rt Katarina 3 Ml Nebu) 3 ml INH X1 ONE Stop: 07/30/24 06:31 Last Admin: 07/30/24 08:38 Dose: 3 ml Documented By: RAFAEL Albuterol/Ipratropium (Albuterol/Ipratropium (Duoneb) Rt Katarina 3 Ml Nebu) 3 ml INH X1 ONE Stop: 07/30/24 10:06 Calcium Chloride (Calcium Chloride 10% Inj 10 Ml Syrg) 10 ml IV X1 ONE Stop: 07/30/24 18:01 Calcium Gluconate (Calcium Gluconate 10% Inj 1 Gm/10 Ml Vial) 1 gm IV X1 ONE Stop: 07/30/24 10:06 Last Admin: 07/30/24 14:23 Dose: Not Given Documented By: SOLE Non-Admin Reason: Cancelled by Provider Calcium Gluconate (Calcium Gluconate 10% Inj 1 Gm/10 Ml Vial) 1 gm IV X1 ONE Stop: 07/30/24 12:01 Last Admin: 07/30/24 11:59 Dose: 1 gm Documented By: CHELSY Clonidine (Clonidine Hcl 0.1 Mg Tablet) 0.2 mg PO X1 ONE Stop: 07/30/24 04:27 Last Admin: 07/30/24 04:33 Dose: 0.2 mg Documented By: SCAR Dextrose (Dextrose 50%-Water Inj 50 Ml Syringe) 100 ml IV X1 ONE Stop: 07/30/24 14:38 Dextrose (Dextrose 50%-Water Inj 50 Ml Syringe) 50 ml IV X1 ONE Stop: 07/30/24 18:02 Etomidate (Etomidate Inj 2 Mg/Ml Vial 10 Ml) 20 mg IVP X1 ONE Stop: 07/30/24 16:02 Glucagon (Glucagon Inj 1 Mg Vial) 1 mg IVP X1 ONE Stop: 07/30/24 08:03 Last Admin: 07/30/24 08:11 Dose: 1 mg Documented By: SOLE Glucagon (Glucagon Inj 1 Mg Vial) 1 mg IVP X1 ONE Stop: 07/30/24 11:51 Last Admin: 07/30/24 11:59 Dose: 1 mg Documented By: CHELSY Sodium Chloride (Ns) 1,000 mls @ 999 mls/hr IV .Q1H1M ONE Stop: 07/30/24 06:40 Last Infusion: 07/30/24 06:58 Dose: Infused Documented By: Admin: 07/30/24 06:13 Dose: 999 mls/hr Documented By: SCAR Sodium Chloride (Ns) 1,000 mls @ 999 mls/hr IV .Q1H1M ONE Stop: 07/30/24 07:41 Last Infusion: 07/30/24 09:18 Dose: Infused Documented By: Admin: 07/30/24 06:57 Dose: 999 mls/hr Documented By: SCAR Norepinephrine/Dextrose (Levophed In D5w 8mg/250ml) 8 mg in 250 mls @ 7.442 mls/hr IV .Q24H PRN; Protocol PRN Reason: PER PROTOCOL Stop: 08/29/24 08:20 Norepinephrine/Dextrose (Levophed In D5w 8mg/250ml) Confirm Administered Dose 8 mg in 250 mls @ ud IV .STK-MED ONE Stop: 07/30/24 08:20 Last Admin: 07/30/24 08:29 Dose: Not Given Documented By: AMINATA Non-Admin Reason: Duplicate Medication on eMAR Magnesium Sulfate/Dextrose (Magnesium Sulfate Ivpb) 1 gm in 100 mls @ 100 mls/hr IV X1 ONE Stop: 07/30/24 11:04 Last Infusion: 07/30/24 12:05 Dose: Infused Documented By: Admin: 07/30/24 10:51 Dose: 100 mls/hr Documented By: SOLE Calcium Gluconate/Sodium Chloride (Calcium Gluc/Ns 1000mg Ivpb) 1,000 mg in 50 mls @ 50 mls/hr IV X1 ONE Stop: 07/30/24 11:14 Last Admin: 07/30/24 14:23 Dose: Not Given Documented By: SOLE Non-Admin Reason: Cancelled by Provider Heparin Sodium/Dextrose (Heparin In D5w Ivpb) 25,000 unit in 250 mls @ 9.525 mls/hr IV .Q24H JUAN CARLOS; Protocol Stop: 08/13/24 11:59 Last Admin: 07/30/24 17:45 Dose: Not Given Documented By: SOLE Non-Admin Reason: Cancelled by Provider Epinephrine/Sodium Chloride (Adrenalin/Ns 4 Mg Ivpb) Confirm Administered Dose 4 mg in 250 mls @ ud IV .STK-MED ONE Stop: 07/30/24 16:46 Epinephrine HCl 8 mg/ Sodium (Chloride) 508 mls @ 15.122 mls/hr IV .Q24H PRN; Protocol PRN Reason: per protocol Stop: 08/29/24 17:55 Insulin Human Regular (Insulin Hum Regular 1 Unit/0.01 Ml (Per Unit)) 10 unit IV X1 ONE Stop: 07/30/24 14:38 Insulin Human Regular (Insulin Hum Regular 1 Unit/0.01 Ml (Per Unit)) 5 unit IV X1 ONE Stop: 07/30/24 18:03 Ketorolac Tromethamine (Ketorolac Inj 30 Mg/Ml Vial) 30 mg IVP X1 ONE Stop: 07/30/24 05:41 Last Admin: 07/30/24 06:11 Dose: 30 mg Documented By: BD Metoprolol Tartrate (Metoprolol Tartrate 25 Mg Tablet) 50 mg PO X1 ONE Stop: 07/30/24 04:27 Last Admin: 07/30/24 04:33 Dose: 50 mg Documented By: Admin: 07/30/24 04:32 Dose: 50 mg Documented By: BD Morphine Sulfate (Morphine Sulf Inj 10 Mg/Ml Vial) 4 mg IVP X1 ONE Stop: 07/30/24 05:41 Last Admin: 07/30/24 06:12 Dose: 4 mg Documented By: BD Naloxone HCl (Naloxone Inj 1 Mg/Ml Syringe 2 Ml) 0.22 mg IV X1 ONE Stop: 07/30/24 09:34 Last Admin: 07/30/24 09:40 Dose: 0.22 mg Documented By: RD Ondansetron HCl (Ondansetron Inj 2 Mg/Ml Inj 2 Ml) 4 mg IV X1 ONE; Protocol Stop: 07/30/24 05:41 Last Admin: 07/30/24 06:11 Dose: 4 mg Documented By: BD Ondansetron HCl (Ondansetron Inj 2 Mg/Ml Inj 2 Ml) 4 mg IV X1 ONE; Protocol Stop: 07/30/24 08:18 Last Admin: 07/30/24 08:22 Dose: 4 mg Documented By: RD Rocuronium [place] (Rocuronium Inj 10 Mg/Ml Vial 10 Ml) 50 mg IVP X1 ONE Stop: 07/30/24 16:08 Sodium Bicarbonate (Sodium Bicarb Inj 8.4% 1 Meq/Ml 50 Ml Vial) 50 meq IV X1 ONE Stop: 07/30/24 18:01 Sodium Bicarbonate (Sodium Bicarb Inj 8.4% 1 Meq/Ml 50 Ml Vial) 50 meq IV X1 ONE Stop: 07/30/24 18:16 Sodium Chloride (Sodium Chloride Rt 10% 15 Ml Nebu) 5 ml INH X1 ONE Stop: 07/30/24 16:49 Diagnosis Differential Diagnosis ED Complaint MDM: CHF, pneumonia, Pulm hypertension, PA, cardiogenic shock
[2024-07-30 06:39] LABS: Bacteria,Urine Rare; Bilirubin,Urine Negative (Negative); Blood,Urine Negative (Negative); Clarity,Urine Clear (Clear/Hazy); Color,Urine Yellow (Lt Yel-Yel); Glucose, Urine Negative (Negative); Ketones,Urine Negative (Negative); Leukocyte Esterase,Urine Negative (Negative); Nitrite,Urine Negative (Negative); PH,Urine 5.5 (5.0-7.0); Protein,Urine Negative (Neg - Trace); RBC,Urine 2 /hpf (0-3); Specific Gravity,Urine 1.025 (1.001-1.035); WBC,Urine 1 /hpf (0-5)
[2024-07-30 06:39] LABS: Sed Rate (ESR) 5 mm/hr (0-20)
[2024-07-30 06:40] LABS: Amphetamine/Methamp Scrn,U Positive (Negative); Barbiturate Screen,Urine Negative (Negative); Benzodiazepines Screen,Urine Negative (Negative); Benzoylecgonine Screen, Ur Negative (Negative); Fentanyl Screen,Urine Negative (Negative); Opiate Screen,Urine Negative (Negative); THC Screen,Urine Negative (Negative)
[2024-07-30 06:57] LABS: D-Dimer < 250 ng/mL (<600)
[2024-07-30 06:59] LABS: Alcohol, Blood Medical < 3.0 mg/dL (0-10.0); Amylase 63 U/L (30-118); Bilirubin,Direct 0.2 mg/dL (0.0-0.3); C-Reactive Protein < 0.5 mg/dL (0.0-0.9); Free T4 (Free Thyroxine) 1.34 ng/dL (0.89-1.76); Lipase 28 U/L (12-53); Procalcitonin 0.06 ng/ml (0.0-0.49); Thyroid Stimulating Hormone 1.81 uIU/mL (0.55-4.78)
--- NOTE | 2024-07-30 07:36 | PC.NURSE ---
Received report from Skylar DENT and assumed care of patient. Patient moved from room 9 to room 3 due to low blood pressure. Current BP 85//66.
[2024-07-30 07:39] LABS: Lactate (Lactic Acid) 2.9 mMol/L (0.4-2.0)
[2024-07-30 07:57] LABS: Troponin I < 0.020 ng/mL (0.0-0.045)
[2024-07-30 07:58] LABS: Allen Test Not Performed; Base Excess -10 (-3-3); HCO3 16 mEq/L (20-26); Inspired Oxygen, FIO2 91 %; O2 Saturation 100 % (91-98); PCO2 36 mmHg (32.0-48.0); PO2 171 mmHg (83-108); Puncture Site Left Radial; pH, Arterial 7.26 (7.35-7.45)
[2024-07-30] MEDS: GLUCAGON INJ 1 MG VIAL IVP ×2 (08:11→11:59)
[2024-07-30] MEDS: ALBUTEROL/IPRATROPIUM (Duoneb) RT SOL 3 ML NEBU INH (08:38)
--- NOTE | 2024-07-30 08:38 | ECHO_ITS ---
Transthoracic Echo Report Ht (in): 71 Wt (lb): 175 Exam Location: [facility] Status: Emergency Loan Operations Manager: LOGAN Abrams^^^^ Indications: Procedure Performed: BP: 114 / 83 HR: 64 Technical Quality: Fair MEASUREMENTS (Male / Female) Normal Values 2D ECHO LV Diastolic Diameter PLAX 2.0 cm 4.2 - 5.9 / 3.9 - 5.3 cm LV Systolic Diameter PLAX 1.4 cm IVS Diastolic Thickness 0.9 cm 0.6 - 1.0 / 0.6 - 0.9 cm LVPW Diastolic Thickness 1.1 cm 0.6 - 1.0 / 0.6 - 0.9 cm LV Relative Wall Thickness 1.0 Aortic Root Diameter 3.0 cm LA Systolic Diameter LX 2.3 cm 3.0 - 4.0 / 2.7 - 3.8 cm DOPPLER AV Peak Velocity 106.0 cm/s AV Peak Gradient 4.5 mmHg AV Mean Gradient 2.0 mmHg AV Velocity Time Integral 22.1 cm LVOT Peak Velocity 53.2 cm/s LVOT Peak Gradient 1.1 mmHg LVOT Velocity Time Integral 14.2 cm MV Area PHT 3.5 cm? Mitral E Point Velocity 42.1 cm/s Mitral A Point Velocity 51.8 cm/s Mitral E to A Ratio 0.8 LV E' Lateral Velocity 6.7 cm/s Mitral E to LV E' Lateral Ratio 6.3 LV E' Septal Velocity 9.0 cm/s Mitral E to LV E' Septal Ratio 4.7 TR Peak Velocity 363.5 cm/s TR Peak Gradient 52.9 mmHg PV Peak Velocity 67.6 cm/s PV Peak Gradient 1.8 mmHg FINDINGS Left Ventricle Normal left ventricular size, wall thickness, systolic function with no obvious regional wall motion abnormalities. There is grade I diastolic dysfunction of the left ventricle (impaired relaxation pattern). The left ventricular ejection fraction is normal, estimated at 55-60%. Right Ventricle The right ventricular size is severely increased. Estimated right ventricular systolic pressure is severely elevated, 72 mmHg. Left Atrium The left atrium is normal by two-dimensional, color flow and Doppler imaging with no structural abnormalities, no thrombus formation present. Right Atrium The right atrium is normal by two-dimensional imaging, color flow and Doppler imaging with no structural abnormalities, no thrombus formation present. Atrial Septum The interatrial septum appears normal with no evidence of a shunt. Aorta The aorta is normal by two-dimensional, color flow and Doppler interrogation. Mitral Valve Mild mitral regurgitation. Mild mitral annular calcification. Aortic Valve Aortic valve sclerosis. Diffuse calcification of the aortic valve. Tricuspid Valve There is severe tricuspid regurgitation. Pulmonic Valve Trivial pulmonic valve regurgitation. Vessels The pulmonary artery appears normal. The inferior vena cava pulmonary and hepatic veins appear normal. Pericardium There is a tiny, hemodynamically insignificant pericardial effusion. CONCLUSIONS Indication: Pericardial Effusion Severe pulmonary hypertension with RVSP of 72 mm hg and could be underestimated because of the severe open TR. Severe RV dilatation and massive RA dilatation. Tricuspid annular dilatation Severe open TR secondary to lack of coaptation of the tricuspid valve leaflets. D-shaped the interventricular septum in both systole and diastole indicating severe PAH. LV size is small and is significantly compressed by the enlarged RV with severe PAH mostly causing the decreased preload and cardiac output. LV function appears to be in the normal range of 55 to 60% Mild aortic valve sclerosis without stenosis. Trace to mild MR. Trivial pericardial effusion without any and no evidence of any tamponade. IVC significantly dilated with less than 50% collapse. Tomi Valladares (Electronically Signed) Final Date: 30 Jul 2024 17:29
[2024-07-30 09:00] LABS: Basophils # (Auto) 0.1 Thou/mm3 (0.0-0.2); Basophils % (Auto) 1 % (0-2.5); Eosinophils # (Auto) 0.2 Thou/mm3 (0.0-0.5); Eosinophils % (Auto) 2 % (0-10); Hematocrit 41.4 % (41.0-53.0); Hemoglobin 14.5 g/dL (13.5-16.0); Immature Granulocytes % (Auto) 0 % (0-0); Immature Granulocytes Auto 0.02 Thou/mm3 (0.00-0.00); Lymphocytes # (Auto) 2.6 Thou/mm3 (1.0-4.8); Lymphocytes % (Auto) 27 % (10-50); Mean Corpuscular Hemoglobin 33.3 pg (25.0-35.0); Mean Corpuscular Volume 95 fL (80-100); Monocytes # (Auto) 0.8 Thou/mm3 (0.0-0.8); Monocytes % (Auto) 8 % (0-12); Neutrophils # (Auto) 6.2 Thou/mm3 (1.8-7.7); Neutrophils % (Auto) 62 % (37-80); Nucleated Red Blood Cell % 0 /100 WBC (0); Platelet Count 205 Thou/mm3 (140-440); RDW Standard Deviation 49.9 fL (35.1-43.9); Red Blood Count 4.36 Miln/mm3 (4.50-5.90); White Blood Count 9.9 Thou/mm3 (3.8-10.6)
--- NOTE | 2024-07-30 09:16 | PC.NURSE ---
Patient non=compliant with wearing Hi-patrick nasal canula. Patient states that it it smells like sh_t . Informed patient that he needs to try and tolerate the smell but still refuses te wear canula.
[2024-07-30 09:18] LABS: Alanine Aminotransferase 33 U/L (10-49); Albumin, Serum 3.8 gm/dL (3.5-5.0); Albumin/Globulin Ratio 1.5 (1.2-2.2); Alkaline Phosphatase 103 U/L (46-116); Anion Gap 8 (7-16); Aspartate Amino Transferase 45 U/L (0-34); BUN/Creatinine Ratio 13 Ratio (12-20); Bilirubin,Total 1.1 mg/dL (0.3-1.2); Blood Urea Nitrogen 20 mg/dL (9-23); Calcium 7.9 mg/dL (8.3-10.6); Calcium (Corrected) 8.1 mg/dL (8.5-10.1); Carbon Dioxide 20.9 mMol/L (20.0-31.0); Chloride 111 mMol/L (98-107); Creatinine (Component) 1.5 mg/dL (0.6-1.3); Estimated Creatinine Clearance 57.2 mL/min (>60); Globulin 2.6 gm/dL (2.3-3.5); Glucose 137 mg/dL (74-106); Magnesium 1.9 mg/dL (1.6-2.6); Osmolality,Calculated 284 (275-295); Potassium 5.8 mMol/L (3.4-5.1); Sodium 140 mMol/L (136-145); Total Protein 6.4 gm/dL (5.7-8.2); eGFR 54 See Note
--- NOTE | 2024-07-30 09:31 | PC.CC ---
Patient is a 59 year-old male who presents to the hospital for dizziness, SOB, BLE swelling. ASW attempted to complete initial assessment with patient. Patient presents as alert to self. ASW attempted to make telephone contact with Nolberto Grimes who is on patient's demographics as next of Kin but there was no answer. business and services instructor to follow up to complete initial assessment.
[2024-07-30] MEDS: NALOXONE INJ 1 MG/ML SYRINGE 2 ML 0.22 MG IV (09:40)
--- NOTE | 2024-07-30 10:00 | PC.NURSE ---
Patient refusing resendiz catheter.
--- NOTE | 2024-07-30 10:04 | PC.NURSE ---
Patient removed nasal canula and crawling out of bed. Patient took off all monitor devices and sitting at the side of bed and sitting at the side of the bed.
--- NOTE | 2024-07-30 10:14 | PC.NURSE ---
Unable to monitor vital signs due to patient taking everything off.
--- NOTE | 2024-07-30 10:22 | PC.NURSE ---
Patient sitting on commode and refusing to get back in bed.
[2024-07-30 10:35] LABS: Reflex Lactate? Y
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
[2024-07-30] MEDS: Magnesium Sulfate 1 gm Ivpb 1 GM/100 ML BAG IV (10:51)
[2024-07-30 10:57] LABS: Lactic Acid, 3 HR 4.5 mMol/L (0.4-2.0)
[2024-07-30] MEDS: CALCIUM GLUCONATE 10% INJ 1 GM/10 ML VIAL IV (11:59)
--- NOTE | 2024-07-30 14:47 | ESHP_ITS ---
<Statement entered by Clementine Meza MD - 07/30/24 21:12> TOTAL CC TIME: 65 Min I saw and evaluated the patient. I reviewed the resident?s note and agree with findings and plan as documented in the resident?s note. Upon my evaluation, this patient had a high probability of imminent or life- threatening deterioration due to cardiogenic shock, which required my direct attention, intervention, and personal management. This time is exclusive of time spent on procedures, which are documented separately if performed. Pt is in cardiogenic shock due to severe pulmonary hypertension - decompensated. Hx of methamphetamine abuse - and likely cause of PHTN. While in ED ICU team performed informal ECHO revealing extraordinarly severe dilated RA/RV c/w pulm HTN w/ poor RV function. Ddx: included PE - therefore, we requested stat CTA No vasoactive meds at [facility] for pulm HTN and pt is too unstable to transfer Dobutamine ordered when pt was in ED - too unstable to consider diuresis while in ED will attempt post presors (d/c if unable to tolerate it). Pt suffered cardiac arrest while in ED and post arrest placed on epinephrine and levophed. Track lactic acid. Prognosis poor due to severity of pulmonary hypertension and cardiogenic shock. Documentation for date of: 07/30/24 HPI History of Present Illness Chief complaint: shortness of breath History of present illness: Patient is a 59 year old male with PMH of COPD, CHF, methampheatmine use disorder, who presents to the ER around 02:00 for acute onset of dizziness and shortness of breath. He endorsed shortness of breath and lower extremity swelling for the last 3 weeks. Endorsed orthopnea and dyspnea, and abdominal pain. Upon evaluation, patient was lethargic, arousable, saturating in the 70s at 10L NC. He had bilateral lower extremity edema, cool extremities, and mottling. EKG showed sinus tachycardia with T wave depressions in lateral leads. Bedside POCUS showed enlarged RH suggestive of pulmonary hypertension. Patient was briefly started on heparin drip empirically while a CTA was ordered to rule out PE, which was negative. Patient was started on dobutamine drip at 2.5mg/kg. Around 4pm, RENETTA coreas was called. Patient had PEA. 3 rounds of CPR with 2 pushes of epinephrine. ROSC was achieved. Patient was immediately intubated by ER physician and ER resident. Patient was discontinued from dobutamine and started on levophed and epinephrine. Around 6pm, CODE blue was called. Patient had PEA. 5 rounds of CPR and 5 pushes of epinephrine. ROSC was achieved. Patient then coded again. Patient had PEA. 3 rounds of CPR with 2 pushes of epinephrine, ROSC was achieved. Patient was moved to the ICU but became pulseless en route. CODE BLUE was called. Patient had PEA and 1 push of epinephrine. ROSC was achieved. Dr. Hopper spoke to family who decided to change patient CODE STATUS to DNR. Patient admitted to the ICU for shock and cardiopulmonary arrest with ROSC. Review of Systems Review of Systems ROS Unobtainable: unobtainable due to mental status and due to endotracheal tube Exam Vital Signs Temp Pulse Resp BP Pulse Ox O2 Del Method O2 Flow Rate 94.1 F L 61 13 98/73 98 Oxy Mask 15 07/30/24 07:48 07/30/24 14:33 07/30/24 14:33 07/30/24 14:33 07/30/24 14:33 07/30/24 14:33 07/30/24 14:33 FiO2 100 07/30/24 09:53 Narrative Exam Constitutional: Ill-appearing male, appears older than stated age. HEENT: NCAT. Pupils reactive to light. No corneal reflex. Respiratory: Intubated. Cardiac: RRR. Abdomen: Soft, non-distended, non-tender. No guarding, no rebound. MSK: 3+ bilateral LE edema to ankles Skin: Cool extremities, dusky. Significant mottling. BEDSIDE POCUS: Significant dilated RH, small LV. Results: Labs 07/30/24 18:42 07/30/24 18:42 Labs: Short CBC 07/30/24 07/30/24 Range/Units 04:38 07:44 WBC 8.3 9.9 (3.8-10.6) Thou/mm3 Hgb 13.9 14.5 (13.5-16.0) g/dL Hct 39.0 L 41.4 (41.0-53.0) % Plt Count 189 205 (140-440) Thou/mm3 BMP 07/30/24 07/30/24 04:38 07:44 Sodium 142 140 Potassium 5.1 5.8 H D Chloride 109 H 111 H Carbon Dioxide 25.1 20.9 BUN 23 20 Creatinine 1.5 H 1.5 H Glucose 99 137 H Calcium 9.2 7.9 L Cardiac Enzymes 07/30/24 07/30/24 07/30/24 Range/Units 04:38 07:25 13:11 Troponin I < 0.020 < 0.020 0.030 (0.0-0.045) ng/mL Liver Function 07/30/24 07/30/24 Range/Units 04:38 07:44 Total Bilirubin 0.6 1.1 D (0.3-1.2) mg/dL Direct Bilirubin 0.2 (0.0-0.3) mg/dL AST 30 45 H (0-34) U/L ALT 28 33 (10-49) U/L Alkaline Phosphatase 100 103 (46-116) U/L Albumin 4.1 3.8 (3.5-5.0) gm/dL Urine 07/30/24 Range/Units 05:37 Urine Color Yellow (Lt Yel-Yel) Urine Clarity Clear (Clear/Hazy) Urine pH 5.5 (5.0-7.0) Ur Specific [place] 1.025 (1.001-1.035) Urine Protein Negative (Neg - Trace) Urine Glucose (UA) Negative (Negative) ABG Interpretation ABG results: 07/30/24 07:54 ABG pH 7.26 L ABG pCO2 36 ABG pO2 171 H ABG HCO3 16 L ABG O2 Saturation 100 H ABG Base Excess -10 L Quality Measures Quality Measures none Medications Home Medications and Allergies Allergies Allergy/AdvReac Type Severity Reaction Status Date / Time No Known Allergies Allergy Verified 07/30/24 03:04 Visit Medications Furosemide (Furosemide Inj 10 Mg/Ml Vial 2 Ml) 20 mg IV TID [facility] Stop: 08/29/24 14:44 Dobutamine HCl/Dextrose (Dobutrex/D5w Ivpb) 500 mg in 250 mls @ 5.953 mls/hr IV .Q24H ONE; Protocol Stop: 07/31/24 14:31 Ondansetron HCl (Ondansetron Inj 2 Mg/Ml Inj 2 Ml) 4 mg IV Q6H PRN; Protocol PRN Reason: vomiting Stop: 08/29/24 09:44 Last Admin: 07/30/24 12:16 Dose: 4 mg Discontinued Medications Albuterol/Ipratropium (Albuterol/Ipratropium (Duoneb) Rt Katarina 3 Ml Nebu) 3 ml INH X1 ONE Stop: 07/30/24 06:31 Last Admin: 07/30/24 08:38 Dose: 3 ml Albuterol/Ipratropium (Albuterol/Ipratropium (Duoneb) Rt Katarina 3 Ml Nebu) 3 ml INH X1 ONE Stop: 07/30/24 10:06 Calcium Gluconate (Calcium Gluconate 10% Inj 1 Gm/10 Ml Vial) 1 gm IV X1 ONE Stop: 07/30/24 10:06 Last Admin: 07/30/24 14:23 Dose: Not Given Calcium Gluconate (Calcium Gluconate 10% Inj 1 Gm/10 Ml Vial) 1 gm IV X1 ONE Stop: 07/30/24 12:01 Last Admin: 07/30/24 11:59 Dose: 1 gm Clonidine (Clonidine Hcl 0.1 Mg Tablet) 0.2 mg PO X1 ONE Stop: 07/30/24 04:27 Last Admin: 07/30/24 04:33 Dose: 0.2 mg Dextrose (Dextrose 50%-Water Inj 50 Ml Syringe) 100 ml IV X1 ONE Stop: 07/30/24 14:38 Glucagon (Glucagon Inj 1 Mg Vial) 1 mg IVP X1 ONE Stop: 07/30/24 08:03 Last Admin: 07/30/24 08:11 Dose: 1 mg Glucagon (Glucagon Inj 1 Mg Vial) 1 mg IVP X1 ONE Stop: 07/30/24 11:51 Last Admin: 07/30/24 11:59 Dose: 1 mg Sodium Chloride (Ns) 1,000 mls @ 999 mls/hr IV .Q1H1M ONE Stop: 07/30/24 06:40 Last Infusion: 07/30/24 06:58 Dose: Infused Sodium Chloride (Ns) 1,000 mls @ 999 mls/hr IV .Q1H1M ONE Stop: 07/30/24 07:41 Last Infusion: 07/30/24 09:18 Dose: Infused Norepinephrine/Dextrose (Levophed In D5w 8mg/250ml) 8 mg in 250 mls @ 7.442 mls/hr IV .Q24H PRN; Protocol PRN Reason: PER PROTOCOL Stop: 08/29/24 08:20 Magnesium Sulfate/Dextrose (Magnesium Sulfate Ivpb) 1 gm in 100 mls @ 100 mls/hr IV X1 ONE Stop: 07/30/24 11:04 Last Infusion: 07/30/24 12:05 Dose: Infused Calcium Gluconate/Sodium Chloride (Calcium Gluc/Ns 1000mg Ivpb) 1,000 mg in 50 mls @ 50 mls/hr IV X1 ONE Stop: 07/30/24 11:14 Last Admin: 07/30/24 14:23 Dose: Not Given Heparin Sodium/Dextrose (Heparin In D5w Ivpb) 25,000 unit in 250 mls @ 9.525 mls/hr IV .Q24H JUAN CARLOS; Protocol Stop: 08/13/24 11:59 Insulin Human Regular (Insulin Hum Regular 1 Unit/0.01 Ml (Per Unit)) 10 unit IV X1 ONE Stop: 07/30/24 14:38 Ketorolac Tromethamine (Ketorolac Inj 30 Mg/Ml Vial) 30 mg IVP X1 ONE Stop: 07/30/24 05:41 Last Admin: 07/30/24 06:11 Dose: 30 mg Metoprolol Tartrate (Metoprolol Tartrate 25 Mg Tablet) 50 mg PO X1 ONE Stop: 07/30/24 04:27 Last Admin: 07/30/24 04:33 Dose: 50 mg Morphine Sulfate (Morphine Sulf Inj 10 Mg/Ml Vial) 4 mg IVP X1 ONE Stop: 07/30/24 05:41 Last Admin: 07/30/24 06:12 Dose: 4 mg Naloxone HCl (Naloxone Inj 1 Mg/Ml Syringe 2 Ml) 0.22 mg IV X1 ONE Stop: 07/30/24 09:34 Last Admin: 07/30/24 09:40 Dose: 0.22 mg Ondansetron HCl (Ondansetron Inj 2 Mg/Ml Inj 2 Ml) 4 mg IV X1 ONE; Protocol Stop: 07/30/24 05:41 Last Admin: 07/30/24 06:11 Dose: 4 mg Ondansetron HCl (Ondansetron Inj 2 Mg/Ml Inj 2 Ml) 4 mg IV X1 ONE; Protocol Stop: 07/30/24 08:18 Last Admin: 07/30/24 08:22 Dose: 4 mg Assessment & Plan Plan Patient is a 59 year old male admitted to the ICU for cardiogenic shock. 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 Keep off sedation until patient starts to wake to evaluate mental status, then will sedate for ventilator synchrony RRX: CVS Problem: Cardiogenic shock, cardiopulmonary arrest with ROSC DDX: Severe pulmonary hypertension exacerbated by meth/medications leading to decompensated heart failure and cardiogenic shock, respiratory arrest DX: EKG prior to arrest shows sinus tachycardia with T wave depressions in lateral leads. Initial troponins negative. BNP elevated at 658. Formal echo pending read RX: discontinue epinephrine and levophed. Start dobutamine drip at 2.5, titrate to SvO2 at 65%; phenylephrine ggt. Lasix 20 TID for diuresis. RRX: Cardiology Dr. Valladares consulted. Bedside POCUS echo showed significantly enlarged right atria and right ventricle with signs of RH strain, with the septum pushing out causing LV outflow blockage and decreased EF. CTA ruled out PE. Respi Problem: Acute hypoxic respiratory failure, respiratory arrest DDX: COPD, cardiogenic shock DX: CXR, Spo2, VBG RX: On ventilator. Current vent settings is 550/16/5/100% RRX: CXR shows hyperinflated lungs; does not show infiltrate or pleural effusion. Follow up ABG. Patient ventilated, keep SpO2 > 88%. Renal Problem: ROBERT, Lactic acidosis, anion gap metabolic acidosis due to lactic acidosis DDX: pre-renal due to low perfusion state in the setting of cardiogenic shock DX: RX: Lasix 20mg TID, bicarb drip. RRX: Monitor hourly UOP. Trend lactic acid. Follow up renal panel GI No acute problems Ulcer prophylaxis: pepcid Endo No acute problems Heme No acute problems ID No acute problems Health Maintenance Disposition: Admit to the ICU for cardiogenic shock, cardiopulmonary arrest with ROSC Diet and fluids: NPO DVT prophylaxis: heparin GI prophylaxis: pepcid Lines: PIV, RIJ central line, ET tube CODE STATUS: DNR I have reviewed and discussed the patient's care with my attending, Dr. Susana Oneal MD PGY-3
[2024-07-30] MEDS: DOBUTamine/D5w 500 MG IVPB 500 MG/250 ML BAG 5.953 MG IV ×2 (15:15→19:22)
--- NOTE | 2024-07-30 15:56 | PC.NURSE ---
PATIENT UNRESPONSIVE AFTER ATTEMPTING TO GET OUT OF BED. CODE BLUE CALLED; CPR INITIATED.
--- NOTE | 2024-07-30 16:34 | PD.EDADDENDU ---
Emergency Room Addendum Addendum Narrative: 1556: I was called to bedside by RN, patient became unresponsive and lost pulses. Code blue called overhead. 1557: 1mg Epi given 1558 Pulse check, asystole, CPR resumed 1600: 1mg Epi given 1602: Pulse check, +carotid pulses, ROSC 1605: 0.5mg Epi given 1609: 0.5mg Epi given 1610: 0.5mg Epi given 1611: 0.5mg Epi given 1611: 50mg Rocuronium and 20mg Etomidate given for intubation 1612: 1mg Epi given 1613: 1mg Epi given 1618: Patient intubated, see procedure note ED Procedures Intubation sedative: Etomidate Mg Given: 20 paralytic: Rocuronium Mg Given: 50 Laryngoscope: Anai ET Tube Size: 7.5 ET Tube Uncuffed: No Tube Secured Depth (cm): 25 Tube Secured Location: other Tube Placement Confirmation: visualized tube passing through cords, equal breath sounds bilaterally, no breath sounds over epigastrium and confirmation by capnometry Patient Tolerated Procedure: well and no complications Intubation Complications: none
[2024-07-30 16:53] LABS: Base Excess, Venous -21 (-3-3); O2 Saturation, Venous 64 % (96-97); PCO2, Venous 36 mmHg (36-56); PO2, Venous 50 mmHg (15-58); pH, Venous 7.02 (7.33-7.66)
[2024-07-30 16:59] LABS: Lactate (Lactic Acid) 7.9 mMol/L (0.4-2.0)
[2024-07-30 17:24] LABS: Alanine Aminotransferase 227 U/L (10-49); Albumin, Serum 4.2 gm/dL (3.5-5.0); Albumin/Globulin Ratio 1.5 (1.2-2.2); Alkaline Phosphatase 131 U/L (46-116); Anion Gap 16 (7-16); Aspartate Amino Transferase 286 U/L (0-34); BUN/Creatinine Ratio 12 Ratio (12-20); Bilirubin,Total 2.1 mg/dL (0.3-1.2); Blood Urea Nitrogen 23 mg/dL (9-23); Chloride 113 mMol/L (98-107); Creatinine (Component) 1.9 mg/dL (0.6-1.3); Estimated Creatinine Clearance 45.1 mL/min (>60); Globulin 2.8 gm/dL (2.3-3.5); Glucose 84 mg/dL (74-106); Magnesium 2.4 mg/dL (1.6-2.6); Osmolality,Calculated 287 (275-295); Phosphorous 4.9 mg/dL (2.4-5.1); Potassium 5.2 mMol/L (3.4-5.1); Sodium 143 mMol/L (136-145); eGFR 40 See Note
[2024-07-30 17:32] LABS: Base Excess -22 (-3-3); HCO3 11 mEq/L (20-26); Inspired Oxygen, FIO2 100 %; O2 Saturation 97 % (91-98); PCO2 56 mmHg (32.0-48.0); PO2 154 mmHg (83-108)
[2024-07-30 17:44] LABS: Allen Test Performed/OK; Puncture Site Left Radial
--- NOTE | 2024-07-30 17:46 | XR_ITS ---
Examination: AP chest single view TECHNIQUE: AP portable supine chest single view Date and time: July 30, 2024 1744 hours Comparison July 30, 2024 1605 hours INDICATIONS: Hypoxic respiratory failure postintubation FINDINGS: Mild prominence left ventricle Endotracheal tube tip 2.8 cm above Luz Right internal jugular central line tip SVC Orogastric tube projects in right mainstem bronchus IMPRESSION: Retract the orogastric tube and reinserted
[2024-07-30 17:52] LABS: Carbon Dioxide 14.4 mMol/L (20.0-31.0)
[2024-07-30 17:53] LABS: Basophils % (Auto) 0 % (0-2.5); Eosinophils % (Auto) 0 % (0-10); Hematocrit 41.7 % (41.0-53.0); Hemoglobin 14.2 g/dL (13.5-16.0); Immature Granulocytes % (Auto) 3 % (0-0); Immature Granulocytes Auto 0.36 Thou/mm3 (0.00-0.00); Lymphocytes # (Auto) 1.8 Thou/mm3 (1.0-4.8); Lymphocytes % (Auto) 17 % (10-50); Mean Corpuscular HGB Conc 34.1 g/dl (31.0-37.0); Mean Corpuscular Hemoglobin 33.1 pg (25.0-35.0); Mean Corpuscular Volume 97 fL (80-100); Monocytes # (Auto) 0.6 Thou/mm3 (0.0-0.8); Monocytes % (Auto) 5 % (0-12); Neutrophils # (Auto) 7.9 Thou/mm3 (1.8-7.7); Neutrophils % (Auto) 74 % (37-80); Nucleated Red Blood Cell % 0 /100 WBC (0); Platelet Count 135 Thou/mm3 (140-440); RDW Standard Deviation 52.5 fL (35.1-43.9); Red Blood Count 4.29 Miln/mm3 (4.50-5.90); White Blood Count 10.7 Thou/mm3 (3.8-10.6)
[2024-07-30 17:56] LABS: Troponin I 0.054 ng/mL (0.0-0.045)
--- NOTE | 2024-07-30 18:01 | PC.CC ---
Liana ARZATE responded to the code blue. ASW made telephone contact with patient's nephew, Cornelio who is listed as his Next of Kin. Per nephew, he spoke to someone at the hospital who informed him that the patient was coding. Patient's nephew reports he will be heading to the hospital. director of outpatient services to follow up for any needs.
[2024-07-30] MEDS: EPINEPHRINE IV (18:28)
[2024-07-30] MEDS: SODIUM CHLORIDE 0.9% IV (18:28)
[2024-07-30] MEDS: Norepinephrine/D5W 8mg/250ml 8 MG/250 ML BAG 74.418 MG IV (18:28)
[2024-07-30 19:05] LABS: Basophils % (Auto) 0 % (0-2.5); Eosinophils % (Auto) 0 % (0-10); Hematocrit 35.6 % (41.0-53.0); Hemoglobin 11.9 g/dL (13.5-16.0); Immature Granulocytes % (Auto) 4 % (0-0); Immature Granulocytes Auto 0.42 Thou/mm3 (0.00-0.00); Lymphocytes # (Auto) 2.3 Thou/mm3 (1.0-4.8); Lymphocytes % (Auto) 22 % (10-50); Mean Corpuscular HGB Conc 33.4 g/dl (31.0-37.0); Mean Corpuscular Hemoglobin 33.1 pg (25.0-35.0); Mean Corpuscular Volume 99 fL (80-100); Monocytes # (Auto) 0.4 Thou/mm3 (0.0-0.8); Monocytes % (Auto) 4 % (0-12); Neutrophils # (Auto) 7.4 Thou/mm3 (1.8-7.7); Neutrophils % (Auto) 70 % (37-80); Nucleated Red Blood Cell % 0 /100 WBC (0); Platelet Count 110 Thou/mm3 (140-440); RDW Standard Deviation 52.8 fL (35.1-43.9); Red Blood Count 3.59 Miln/mm3 (4.50-5.90); White Blood Count 10.6 Thou/mm3 (3.8-10.6)
[2024-07-30] MEDS: Sodium Bicarb 8.4% 50ml Vial* 88.23 MEQ in DEXTROSE 5%-WATER 500 ML 100 MEQ IV (19:10)
--- NOTE | 2024-07-30 19:15 | PD.RESEVENT ---
Documentation for date of: 07/30/24 Event Note Event Note: ICU team saw the patient at bedside as the CODE BLUE was recalled this afternoon. For breakdown of patient's events during the code blues please refer to Dr. Oneal's H&P on 07/30/2024. Patient's daughter was determined to be the decision maker by the patient upon presentation to the ER. Patient's daughter Nilsa ([phone]) was contacted as she was no longer at bedside. Daughter was kept up-to-date with the recurrent episodes of cardiopulmonary arrest which were 3 episodes of PEA followed by ROSC within the span of about 40 minutes. After further discussions with the clip loading machine feeder as well as giving patient's critical status and severe PAH seen on echocardiogram Engorged right atrium, it was determined the patient's prognosis is very poor. The decision was made with daughter to no longer perform chest compressions if cardiopulmonary arrest occurs again. Patient is now in the ICU on pressor support and maximum ventilator support. Patient's person to notify, his sister Misty, was contacted and informed of the current events. I discussed patient's care with attending physician, Dr Susana Hopper PGY3
[2024-07-30 19:17] LABS: Base Excess, Venous -12 (-3-3); O2 Saturation, Venous 97 % (96-97); PCO2, Venous 41 mmHg (36-56); PO2, Venous 98 mmHg (15-58)
[2024-07-30] MEDS: PHENYLEPHRINE HCL 40 MG in SODIUM CHLORIDE 0.9% 96 ML IV (19:25)
--- NOTE | 2024-07-30 19:27 | PD.RESPROC ---
Procedures Procedure Date / Time 07/30/241926 Central Line Placement Right IJ: Indication(s): shock Informed consent obtained: procedure done urgently Time out done, and the following verified: correct patient, side and site and procedure Patient placed on monitor/pulse ox: Yes Hand Hygiene: scrub, soap & water and alcohol-based hand rub Max Sterile Barrier Techniques used: cap, mask, sterile gown, sterile gloves and sterile full body drape Central line prep: Povidone-Iodine 1%, Chlorhexidine scrub and sterile drapes applied Local anesthesia used: lidocaine 1% Amount of anesthesia used (mL): 10 Ultrasound used for placement: Yes Sterile Technique if Ultrasound used, including sterile gel: yes Central line lumen inserted: triple Post procedure: sutured in place, good blood return, all ports aspirated, flushed, capped and sterile dressing applied Post procedure x-ray: tip of catheter in good position and no pneumothorax seen Patient tolerated procedure: well and no complications EBL(ml): 10 Complications: none Procedure comment: Savita Oneal MD PGY-3
[2024-07-30 19:33] LABS: Alanine Aminotransferase 260 U/L (10-49); Albumin, Serum 2.6 gm/dL (3.5-5.0); Albumin/Globulin Ratio 1.4 (1.2-2.2); Alkaline Phosphatase 89 U/L (46-116); Anion Gap 15 (7-16); Aspartate Amino Transferase 307 U/L (0-34); BUN/Creatinine Ratio 12 Ratio (12-20); Bilirubin,Total 1.5 mg/dL (0.3-1.2); Blood Urea Nitrogen 28 mg/dL (9-23); Calcium 7.9 mg/dL (8.3-10.6); Chloride 110 mMol/L (98-107); Creatinine (Component) 2.3 mg/dL (0.6-1.3); Estimated Creatinine Clearance 37.3 mL/min (>60); Globulin 1.9 gm/dL (2.3-3.5); Glucose 304 mg/dL (74-106); Magnesium 2.6 mg/dL (1.6-2.6); Osmolality,Calculated 305 (275-295); Potassium 4.8 mMol/L (3.4-5.1); Sodium 145 mMol/L (136-145); Total Protein 4.5 gm/dL (5.7-8.2); eGFR 32 See Note
[2024-07-30 19:33] LABS: Base Excess -13 (-3-3); HCO3 17 mEq/L (20-26); Inspired Oxygen, FIO2 100 %; O2 Saturation 96 % (91-98); PCO2 51 mmHg (32.0-48.0); PO2 102 mmHg (83-108)
[2024-07-30 19:42] LABS: Allen Test Performed/OK; Puncture Site Right Radial
--- NOTE | 2024-07-30 19:42 | PC.NURSE ---
Pt. came came up from ED with a 100 mg bag of maria teresa spiked but not scanned. Medication was discontinued by MD morel was wasted and pharmacy was notified.
[2024-07-30 19:43] LABS: pH, Arterial 7.12 (7.35-7.45)
[2024-07-30 19:48] LABS: Reflex Lactate? Y
[2024-07-30] MEDS: FAMOTIDINE INJ 10 MG/ML VIAL 2 ML 20 MG IVP (20:39)
[2024-07-30] MEDS: FUROSEMIDE INJ 10 MG/ML VIAL 2 ML 20 MG IV ×2 (20:45→22:11)
[2024-07-30 21:11] LABS: Lactate (Lactic Acid) 5.6 mMol/L (0.4-2.0)
--- NOTE | 2024-07-30 21:52 | XR_ITS ---
Examination: AP chest single view TECHNIQUE: AP portable semiupright chest single view. Date and time: July 30, 20242123 hours INDICATIONS: Post orogastric tube placement FINDINGS: Orogastric tube in the stomach satisfactory position Suspicious for mild pneumonia left upper lobe Normal heart size IMPRESSION: Orogastric tube in the stomach satisfactory position
[2024-07-30 21:59] LABS: Reflex Lactate? Y
[2024-07-30] MEDS: fentaNYL 2,500 MCG/250 ML BAG 2,500 MCG/250 ML BAG IV (22:12)
[2024-07-30] MEDS: PROPOFOL 1,000 MG IVPB 1,000 MG/100 ML VIAL 2.381 MG IV (22:12)
--- NOTE | 2024-07-30 22:57 | DES_ITS ---
<Statement entered by Alfredo Smith MD - 07/31/24 06:48> Patient seen and examined at bedside with resident. Confirmed heart and lung sounds absent greater than 60 seconds. Brainstem reflexes absent. Time of confirmed below. Alfredo Smith MD Documentation for date of: 07/30/24 Pronouncement Note Date and Time of Date of : 07/30/24 Time of : 22:53 PCOD Preliminary cause of : Cardiopulmonary arrest Summary Additional details: Called to see patient for unresponsiveness. On exam the patient was unresponsive, no spontaneous movement observed, pt did not respond to verbal or noxious stimuli. Absent heart and breath sounds for more than 2 minute. Pupils are fixed and dilated, corneal reflex was absent. Patient pronounced at 23:53. Dr. Alfredo Smith notified. Family notified. Additional Data Confirmation of : no pulse, no respirations, no heart sounds and pupils fixed and dilated Family: contacted Attending/PCP notified?: Yes Attending physician: Alfredo Smith MD Was code activated?: No Autopsy requested?: No rules examiner notified?: Yes Organ bank notified?: No Advance directives: No
--- NOTE | 2024-07-30 23:00 | PC.NURSE ---
Discontinued OGtube, MD Peres aware, states to reinsert another one and recheck CXR after. Reinserted OGT at this time. at around 2200, patient started to open his eyes, MD peres at bedside, stated to start patient on sedations. at around 2245 called MD Peres at bedside patient's HR rapidly drops from 90's to 50's, then patient went into PEA. patient was pronounced by MD at 2253. also called patients family member Joel called [facility] office, tel#[phone], Alconjennifer states patient is not a rn [facility]'s case log#[id number]. and will not send [facility] and will contact [facility] for ETA fruit or nut picker.
--- NOTE | 2024-07-30 23:17 | PC.NURSE ---
Contacted donor network, per Cathy Smith patient not a candidate for organ donation [facility]#[phone]
[2024-07-31 00:05] LABS: Reflex Lactate? Y
--- NOTE | 2024-07-31 06:29 | DES_ITS ---
<Statement entered by Clementine Meza MD - 08/02/24 16:22> I saw and evaluated the patient. I reviewed the resident?s note and agree with findings and plan as documented in the resident?s note. patient's cardiogenic shock progressed depsite multiple pressors suspect methamphetamine acute use as cause of acute exacerbation despite MV and pressors pt hemodynamics continued to decline Family was made aware of poor prognosis He due to cardiorespiratory collapse from above Documentation for date of: 07/31/24 Summary Date and Time Date of admission: 07/30/24 14:34 Summary Details: Patient is a 59 year old male with PMH of COPD, CHF, methampheatmine use disorder, who presents to the ER around 02:00 for acute onset of dizziness and dyspnea, and lower extremity swelling. Upon evaluation, patient was lethargic and hypoxic. He had bilateral lower extremity edema, cool extremities, and mottling. EKG showed sinus tachycardia with T wave depressions in lateral leads. Echo showed extroadinarly enlarged right atria and right ventricle suggestive of severe pulmonary hypertension. Patient was briefly started on heparin drip empirically while a CTA was ordered to rule out PE, which was negative. Patient had severe pulmonary hypertension from COPD and methemphetamine use leading to decompensated heart failure and subsequent cardiogenic shock and cardiopulmonary arrest. Unfortunately, patient had 4 cardiopulmonary arrests. The underlying rhythm was PEA. He was intubated and transferred to the ICU. Family was notified throughout the events and were aware of the overall poor and guarded prognosis. Family decided to change code status from full code to DNR. Patient and was pronounced time of at 23:53. Family was notified. Acute encephalopathy Cardiogenic blanca Cardiopulmonary arrest with ROSC Acute hypoxic respiratory failure COPD ROBERT Lactic acidosis AGMA I have reviewed and discussed the patient's care with my attending, Dr. Susana Oneal MD PGY-3 Additional Data Attending/PCP notified?: Yes Attending physician: Alfredo Smith MD Visit Providers Provider Primary care physician: FRANKLIN Askew Consults: 07/30/24 14:14 Consult to Cardiology Stat Comment: Consulting Provider: Tomi Valladares Diagnosis PCOD Cause of : Cardiopulmonary arrest Discharge Plan Plan Patient Disposition: Prescriptions/Referrals Referrals: James,Tessa, BUILDING CLEANER [Primary Care Provider] - Patient/Caregiver Discharge Instructions Print Language: Swedish Discharge Order Discharge Orders: Discharge (Routine); Ordered 07/31/24 Ordered By: Savita Oneal
== END 2024-07-30 22:53 | disposition expired | DRG 196 ==
LOC: SERX 14:49 → SERHOLD 17:04 → S2SX 18:30
PROVIDERS: Emergency Medicine; Physician Assistant; Student in an Organized Health Care Education/Training Program; Admitting Provider Internal Medicine; Emergency Provider Emergency Medicine; PCP Nurse Practitioner Family; Visit Provider Student in an Organized Health Care Education/Training Program
DX: R57.0 Cardiogenic shock (principal); J96.01 Acute respiratory failure with hypoxia; E87.29 Other acidosis; N17.9 Acute kidney failure, unspecified; G93.40 Encephalopathy, unspecified; Z66 Do not resuscitate; I13.0 Hypertensive heart and chronic kidney disease with heart failure and stage 1 through stage 4 chronic kidney disease, or unspecified chronic kidney disease; F17.200 Nicotine dependence, unspecified, uncomplicated; F15.10 Other stimulant abuse, uncomplicated; I48.91 Unspecified atrial fibrillation; J44.9 Chronic obstructive pulmonary disease, unspecified; N18.30 Chronic kidney disease, stage 3 unspecified; K74.60 Unspecified cirrhosis of liver; R18.8 Other ascites; J98.4 Other disorders of lung; I50.810 Right heart failure, unspecified; I45.10 Unspecified right bundle-branch block; E87.5 Hyperkalemia; E78.5 Hyperlipidemia, unspecified; I27.29 Other secondary pulmonary hypertension; I46.2 Cardiac arrest due to underlying cardiac condition; Z79.01 Long term (current) use of anticoagulants; Z86.73 Personal history of transient ischemic attack (TIA), and cerebral infarction without residual deficits
CPT/HCPCS: 36415; 36600; 70450; 71045; 71275; 74177; 80053; 80069; 80307; 80320; 81001; 82150; 82248; 82803; 83605; 83690; 83735; 83880; 84100; 84145; 84439; 84443; 84484; 85025; 85379; 85610; 85652; 85730; 86140; 87040; 87081; 87205; 87400; 87811; 92950; 93306; 94002; 94003; 94640; A4649; A9270; J0171; J0612; J1250; J1610; J1885; J1938; J2270; J2310; J2371; J2405; J2704; J3010; J3475; J3490; J7030; J7040; J7050; J7060; Q9967; G0480